=== PATIENT | female | born 1945 | race Caucasian/White ===

== ENCOUNTER → 2019-08-04 10:06 | Outpatient (BNVA) | payer MEDICARE, BC, SELFPAY | PROVIDERS: Family Provider Family Medicine; Visit Provider Nurse Practitioner Family | DX: M25.531 Pain in right wrist (principal); M25.532 Pain in left wrist | CPT/HCPCS: 73110 ==

== ENCOUNTER 2019-08-31 09:50 | Inpatient (IN) | payer MEDICARE, BC, SELFPAY ==
[2019-08-31] VITALS (13 sets, daily range): BP systolic 111–156; BP diastolic 59–107; PULSE 70–83; RESP 16–20; TEMP 36.4–36.8; O2SAT 93–98; BMI 33.2
--- NOTE | 2019-08-31 10:07 | ED_ITS ---
HPI - Abdominal Pain General: Chief Complaint: Abdominal Pain Stated Complaint: abd pain Time Seen by Provider: 08/31/19 10:01 Source: patient Mode of arrival: ambulatory Limitations: no limitations History of Present Illness: HPI narrative: Patient is a 73-year-old female who presents to ED today with a complaint of abdominal pain that began around 2:30 AM this morning. Patient tells me pain seems to be localized to her upper abdomen. She reports 6 episodes of nonbloody vomit since the abdominal pain began. She is also had about 1-2 episodes of diarrhea (does not describe these as hematochezia or melanotic). Not passing gas. Patient tells me abdominal pain seems to come and go. She reports previous episodes approximately a decade ago that was treated with amitriptyline. She has not been running fevers. No bad food exposure. No recent antibiotic use, NSAID use, alcohol use. Patient is on chronic pain medication. Previous abdominal surgeries include a hysterectomy, hernia repair with mesh, small bowel resection due to SBO (mesh complication). MD elicited complaint: abdominal pain Onset (ago): hour(s) Pain Consistency: intermittent Migration to: no migration Exacerbating factors: nothing Relieving factors: nothing Context: history of similar episodes Associated Symptoms: Reports diarrhea, nausea and vomiting; Denies belching, change in stool character, chills, coffee ground emesis, dysuria, excessive flatus, fever(s), heartburn, hematochezia, hematemesis, melena and syncope Review of Systems General: Reports: 10 or more systems reviewed and unremarkable except in HPI and below Const: Denies: fever(s), chills, body aches, fatigue or malaise Eyes: Denies: change in vision or blurry vision ENMT: Denies: throat pain, enlarged tonsils or odynophagia Card: Denies: chest pain, palpitations, irregular heart rhythm, edema, swelling of feet/ankles, lightheadedness, syncope, pre-syncope, dyspnea on exertion, orthopnea or leg pain with exertion Resp: Denies: dyspnea, productive cough, non-productive cough, pain on inspiration, hemoptysis or chest congestion GI: Reports: abdominal pain, nausea, vomiting and diarrhea; Denies: hematemesis, coffee ground emesis, heartburn, belching, excessive flatus, rectal itching, change in stool character, hematochezia, melena, mucus in stool or white/light colored stool : Denies: flank pain, difficulty voiding, dysuria, urinary frequency, urinary urgency or urinary hesitancy Musc: Denies: neck pain, back pain or joint pain Skin/Breast: Denies: rash Neuro: Denies: headache(s), numbness in extremities, weakness in extremities or sensory changes PFSH ED PFSH: Social History Smoking and tobacco status: former smoker Physical Exam Const: COMMON NORMALS: patient oriented x3, no limitations and alert GENERAL APPEARANCE: cooperative and in distress (during waves of abdominal pain) NUTRITIONAL APPEARANCE: obese HENMT: COMMON NORMALS: normocephalic and atraumatic HEAD & SCALP: normocephalic and atraumatic Chest: COMMONS NORMALS: normal inspection of the chest and normal palpation of entire chest wall Resp: COMMON NORMALS: normal respiratory effort and clear to auscultation bilaterally AUSCULTATION: clear to auscultation bilaterally Cardio: COMMON NORMALS: regular rate and regular rhythm RATE: regular rate RHYTHM: regular rhythm GI: COMMON NORMALS: Soft to palpation INSPECTION: Yes normal to inspection AUSCULTATION: Yes normoactive bowel sounds PALPATION: Yes Soft to palpation and Yes Tenderness to palpation present (GI) (diffuse but more so to RUQ, epigastric, and suprapubic regions) : COMMON NORMALS: Yes no CVA tenderness BLADDER/KIDNEY EXAM: Yes no CVA tenderness Back/Pelvis: COMMON NORMALS: no CVA tenderness Extremity: COMMON NORMALS: normal to inspection, no clubbing, cyanosis or edema and no pedal edema Neuro: COMMON NORMALS: patient oriented x3 SENSORIUM/ORIENTATION: Yes alert Skin: COMMON NORMALS: no rashes or lesions noted GENERAL SKIN EXAM: no rashes or lesions noted Course Consultations: Consultation #1: Dr. Tolbert-recommends NG tube and admit to hospitalist for medical management and he will consult on patient Vital Signs: Vital signs: Vital Signs Temperature 97.8 F 08/31/19 09:58 Pulse Rate 72 08/31/19 13:09 Respiratory Rate 18 08/31/19 13:09 Blood Pressure 116/76 08/31/19 13:09 Pulse Oximetry 96 08/31/19 13:09 MDM - Abdominal Pain MDM Narrative: Medical decision making narrative: NG tube ordered. Lactate still pending (lab confirmed this is running). Dr. Tolbert will consult on patient. Spoke to Dr. Jose who will speak to hospitalist for admission. Lab Data: Labs: Lab Results 08/31/19 08/31/19 08/31/19 Range/Units 10:13 10:13 10:13 WBC 10.7 H (4.0-10.0) 10^3/ uL RBC 3.61 L (4.1-5.3) 10^6/u L Hgb 11.7 (11.5-15.3) g/dL Hct 37.6 (37.0-47.0) % MCV 104.2 H (81-99) fL MCH 32.4 (28.0-34.0) pg MCHC 31.1 (30.0-36.0) g/dL RDW 13.5 (12.1-15.1) % Plt Count 373 (130-400) 10^3/c mm MPV 11.4 H (7.4-10.4) fL Neut % (Auto) 76.0 % Lymph % (Auto) 17.4 % Ballard % (Auto) 5.2 % Eos % (Auto) 0.6 % Baso % (Auto) 0.6 % Neut # (Auto) 8.2 H (1.8-7.7) 10^3/u L Lymph # (Auto) 1.9 (0.8-4.8) 10^3/u L Ballard # (Auto) 0.6 (0.2-0.9) 10^3/u L Eos # (Auto) 0.1 (0.0-0.8) 10^3/u L Baso # (Auto) 0.1 (0.0-0.1) 10^3/u L Nucleated RBC % (a uto) 0 % Nucleated RBCs # 0.0 /100WBC Sodium 139 (136-145) mmol/L Potassium 4.7 (3.5-5.1) mmol/L Chloride 97 L (98-107) mmol/L Carbon Dioxide 25 (22-29) mmol/L Anion Gap 21.7 H (5-19) BUN 18 (8-23) mg/dL Creatinine 0.8 (0.5-0.9) mg/dL Glucose 134 H (65-115) mg/dL Calculated Osmolal ity 286 (285-295) mOsm/k g Calcium 10.9 H (8.5-10.5) mg/dL Total Bilirubin 0.2 (0.15-1.2) mg/dL AST 31 (0-32) U/L ALT 30 (0-33) U/L Alkaline Phosphata se 94 (35-105) IU/L Troponin T Gen 5 n g/L 6 (0-10) ng/mL Total Protein 8.0 (6.6-8.7) g/dL Albumin 4.8 (3.5-5.2) g/dL Globulin 3.2 (1.3-4.6) g/dL Lipase 27 (13-60) U/L Urine Color (Yellow) Urine Appearance (CLEAR) Urine pH (5-7) Ur Specific Gravit y (1.005-1.030) Urine Protein (Negative) Urine Glucose (UA) (Normal) Urine Ketones (Negative) Urine Blood (Negative) Urine Nitrate (Negative) Urine Bilirubin (NEGATIVE) Urine Urobilinogen (Negative) mg/dL Ur Leukocyte Latasha ase (Negative) Urine RBC (0-2) /hpf Urine WBC (0-5) /hpf Ur Squamous Epith Cells (0-5) Urine Bacteria (NONE) Urine Mucus 08/31/19 Range/Units 11:45 WBC (4.0-10.0) 10^3/ uL RBC (4.1-5.3) 10^6/u L Hgb (11.5-15.3) g/dL Hct (37.0-47.0) % MCV (81-99) fL MCH (28.0-34.0) pg MCHC (30.0-36.0) g/dL RDW (12.1-15.1) % Plt Count (130-400) 10^3/c mm MPV (7.4-10.4) fL Neut % (Auto) % Lymph % (Auto) % Ballard % (Auto) % Eos % (Auto) % Baso % (Auto) % Neut # (Auto) (1.8-7.7) 10^3/u L Lymph # (Auto) (0.8-4.8) 10^3/u L Ballard # (Auto) (0.2-0.9) 10^3/u L Eos # (Auto) (0.0-0.8) 10^3/u L Baso # (Auto) (0.0-0.1) 10^3/u L Nucleated RBC % (a uto) % Nucleated RBCs # /100WBC Sodium (136-145) mmol/L Potassium (3.5-5.1) mmol/L Chloride (98-107) mmol/L Carbon Dioxide (22-29) mmol/L Anion Gap (5-19) BUN (8-23) mg/dL Creatinine (0.5-0.9) mg/dL Glucose (65-115) mg/dL Calculated Osmolal ity (285-295) mOsm/k g Calcium (8.5-10.5) mg/dL Total Bilirubin (0.15-1.2) mg/dL AST (0-32) U/L ALT (0-33) U/L Alkaline Phosphata se (35-105) IU/L Troponin T Gen 5 n g/L (0-10) ng/mL Total Protein (6.6-8.7) g/dL Albumin (3.5-5.2) g/dL Globulin (1.3-4.6) g/dL Lipase (13-60) U/L Urine Color Yellow (Yellow) Urine Appearance Clear (CLEAR) Urine pH 5 (5-7) Ur Specific Gravit y 1.020 (1.005-1.030) Urine Protein Neg (Negative) Urine Glucose (UA) Norm (Normal) Urine Ketones Negative (Negative) Urine Blood Neg (Negative) Urine Nitrate Negative (Negative) Urine Bilirubin Neg (NEGATIVE) Urine Urobilinogen Norm (Negative) mg/dL Ur Leukocyte Latasha ase 1+ H (Negative) Urine RBC 0-4 H (0-2) /hpf Urine WBC 5-10 H (0-5) /hpf Ur Squamous Epith Cells 0-4 H (0-5) Urine Bacteria 2+ H (NONE) Urine Mucus Trace Imaging Data ^: US gallbladder: Radiologist's impression: [address] [address] Ultrasound Report Signed Patient: Kathryn Seals Unit #: [id number] : 1945 Age/Sex: 73 / F ADM Date: 08/31/19 Loc: ER Room/Bed: Attending Dr: Ordering Provider/Ordering MD: Alejandrina Chavez Date of Service: 08/31/19 Procedure(s): US gall bladder [id number] Accession Number(s): [id number] Report Number: [id number] WS: [id number] RIGHT UPPER QUADRANT ULTRASOUND HISTORY: RUQ pain COMPARISON: None available. Liver: 12.0 cm in length. Normal size and echogenicity with no intrahepatic dilatation. No mass. Gallbladder: Normally distended gallbladder with no stones or wall thickening. CBD: 0.6 cm Pancreas: Not visualized. Right kidney: 9.6 cm in length. Normal echogenicity with no mass or hydronephrosis. Aorta and IVC: Unremarkable. No ascites. US/US gall bladder [id number] IMPRESSION: 1. Normal gallbladder. 2. Common bile duct is top normal size. 3. Pancreas is not identified. Dictated By: Rosario De Leon DO Signed By: Rosario De Leon DO Signed Date/Time: 08/31/19 1127 DD/ 1126 CXR: Radiologist's impression: [address] [address] XRay Report Signed Patient: Kathryn Seals Unit #: [id number] : 1945 Age/Sex: 73 / F ADM Date: 08/31/19 Loc: ER Room/Bed: Attending Dr: Ordering Provider/Ordering MD: Alejandrina Chavez Date of Service: 08/31/19 Procedure(s): XR chest 1V portable [id number] Accession Number(s): [id number] Report Number: [id number] WS: [id number] PORTABLE CHEST HISTORY: admission COMPARISON: 12/11/2016 Lungs are clear and well expanded. No pleural effusion or pneumothorax. Cardiac size: Normal. Mediastinum/Aorta: Partially calcified thoracic aorta. No osseous abnormality seen. XR/XR chest 1V portable [id number] IMPRESSION: Stable chest with no acute cardiopulmonary disease. Dictated By: Rosario De Leon DO Signed By: Rosario De Leon DO Signed Date/Time: 08/31/191246 DD/ 1246 CT Abd/Pel: Radiologist's impression: [facility] [address] [place] [address] CT Scan Report Signed Patient: Kathryn Seals Unit #: [id number] : 1945 Age/Sex: 73 / F ADM Date: 08/31/19 Loc: ER Room/Bed: Attending Dr: Ordering Provider/Ordering MD: Alejandrina Chavez Date of Service: 08/31/19 Procedure(s): CT abdomen pelvis w con* [id number] Accession Number(s): [id number] Report Number: [id number] WS: [id number] CT ABDOMEN AND PELVIS WITH CONTRAST HISTORY: abdominal pain/N/V TECHNIQUE: Imaging performed of the abdomen and pelvis with IV contrast. Single phase imaging of the abdomen. Coronal and sagittal reformats are submitted. All CT scans at [facility] use at least one of these dose optimization techniques: automated exposure control; mA and/or kV adjustment per patient size (includes targeted exams where dose is matched to clinical indication); or iterative reconstruction. IV CONTRAST: Omnipaque 300; 95 mL IV. Oral contrast: No DLP: 1070.53 mGy.cm COMPARISON: None available. Lower thorax: Lung bases are clear. Heart is normal size. No hiatal hernia. Liver/biliary system: Normal size with no intrahepatic dilatation. Gallbladder: Normal. No gallstones or wall thickening. No pericholecystic fluid. Pancreas: Atrophic pancreas with a very slightly prominent duct. Common bile duct at the pancreatic head is slightly enlarged at 6 mm. There is no intrahepatic duct dilatation. Spleen: Normal. Adrenal glands: Normal. Right kidney: Partial obscuration lower pole RIGHT kidney by artifact from the patient's spine hardware. Simple cyst in the upper pole measures 11 mm. No obstruction. Left kidney: Scattered cortical hypodensities. Majority of these are too small to characterize. The largest measures 2.0 cm and is a cyst from the mid kidney. Cortical thinning and scarring in the lower pole. No obstruction. Aorta: Extensive atherosclerosis aorta. Lymphadenopathy: None. Free fluid: There is a small amount of free fluid in the pelvis. There is also small amount of fluid in the central abdomen anteriorly near the hyperemic loops of bowel and small bowel fecalization. GI tract: Fluid distended proximal and mid small bowel loops. There is fecalization within a loop of small bowel in the central abdomen, just to the RIGHT of midline and also in the RIGHT lower quadrant. There are are also surgical sutures in the small bowel near the a nastomotic site. Suspect this is probably the transition point but there is additional mild hyperemia of small bowel loops which are nondilated in the central abdomen, just to the LEFT of midline. There is mesenteric edema and a small amount of free fluid. Abdominal wall: Unremarkable abdominal wall. No hernia. Pelvis: Small amount of free fluid in the pelvis. No adenopathy. Bones: Extensive posterior lumbar fusion hardware. CT/CT abdomen pelvis w con* [id number] IMPRESSION: 1. Moderate small bowel obstruction with the transition point not determined by probably in the mid small bowel. Distal small bowel is normal caliber. Postoperative sutures in the RIGHT abdomen associated with small bowel. No history of type of small bowel surgery was provided. 2. There is a small amount of free fluid in the abdomen and pelvis. 3. No free air is identified. 4. No abscess. 5. Atrophic pancreas with common bile duct top normal size. 6. Moderate atherosclerosis aorta. Dictated By: Rosario De Leon DO Signed By: Rosario De Leon DO Signed Date/Time: 08/31/19 1155 DD/ 1143 EKG Data ^: EKG 1: EKG interpretation date: 08/31/19 EKG interpretation time: 10:42 Interpretation: Sinus rhythm Rate [address] elevation or depression changes noted Discharge Plan Discharge Patient Disposition: Admitted As Inpatient Clinical Impression: Small bowel obstruction Condition: Stable Referrals: Marcus Pozo MD [Family Provider] - Coding Level of Care Code ED Intellectual Property Lawyer for Chg Fwd Exam Comprehensive
[2019-08-31] MEDS: morphine 4 mg/mL SDV 1 mL IVP (10:21)
[2019-08-31] MEDS: ondansetron 2 mg/ML SDV 2 mL 4 MG IVP ×2 (10:21→23:57)
--- NOTE | 2019-08-31 10:21 | CT_ITS ---
WS: [id number] CT ABDOMEN AND PELVIS WITH CONTRAST HISTORY: abdominal pain/N/V TECHNIQUE: Imaging performed of the abdomen and pelvis with IV contrast. Single phase imaging of the abdomen. Coronal and sagittal reformats are submitted. All CT scans at [facility] use at least one of these dose optimization techniques: automated exposure control; mA and/or kV adjustment per patient size (includes targeted exams where dose is matched to clinical indication); or iterativ e reconstruction. IV CONTRAST: Omnipaque 300; 95 mL IV. Oral contrast: No DLP: 1070.53 mGy.cm COMPARISON: None available. Lower thorax: Lung bases are clear. Heart is normal size. No hiatal hernia. Liver/biliary system: Normal size with no intrahepatic dilatation. Gallbladder: Normal. No gallstones or wall thickening. No pericholecystic fluid. Pancreas: Atrophic pancreas with a very slightly prominent duct. Common bile duct at the pancreatic h ead is slightly enlarged at 6 mm. There is no intrahepatic duct dilatation. Spleen: Normal. Adrenal glands: Normal. Right kidney: Partial obscuration lower pole RIGHT kidney by artifact from the patient's spine hardwa re. Simple cyst in the upper pole measures 11 mm. No obstruction. Left kidney: Scattered cortical hypodensities. Majority of these are too small to characterize. The l argest measures 2.0 cm and is a cyst from the mid kidney. Cortical thinning and scarring in the lower pole. No obstruction. Aorta: Extensive atherosclerosis aorta. Lymphadenopathy: None. Free fluid: There is a small amount of free fluid in the pelvis. There is also small amount of fluid in the central abdomen anteriorly near the hyperemic loops of bowel and small bowel fecalization. GI tract: Fluid distended proximal and mid small bowel loops. There is fecalization within a loop of small bowel in the central abdomen, just to the RIGHT of midline and also in the RIGHT lower quadrant . There are are also surgical sutures in the small bowel near the anastomotic site. Suspect this is p robably the transition point but there is additional mild hyperemia of small bowel loops which are no ndilated in the central abdomen, just to the LEFT of midline. There is mesenteric edema and a small a mount of free fluid. Abdominal wall: Unremarkable abdominal wall. No hernia. Pelvis: Small amount of free fluid in the pelvis. No adenopathy. Bones: Extensive posterior lumbar fusion hardware. CT/CT abdomen pelvis w con* [id number] IMPRESSION: 1. Moderate small bowel obstruction with the transition point not determined b y probably in the mid small bowel. Distal small bowel is normal caliber. Postop erative sutures in the RIGHT abdomen associated with small bowel. No history of type of small bowel surgery was provided. 2. There is a small amount of free fluid in the abdomen and pelvis. 3. No free air is identified. 4. No abscess. 5. Atrophic pancreas with common bile duct top normal size. 6. Moderate atherosclerosis aorta.
--- NOTE | 2019-08-31 10:21 | US_ITS ---
WS: [id number] RIGHT UPPER QUADRANT ULTRASOUND HISTORY: RUQ pain COMPARISON: None available. Liver: 12.0 cm in length. Normal size and echogenicity with no intrahepatic dilatation. No mass. Gallbladder: Normally distended gallbladder with no stones or wall thickening. CBD: 0.6 cm Pancreas: Not visualized. Right kidney: 9.6 cm in length. Normal echogenicity with no mass or hydronephrosis. Aorta and IVC: Unremarkable. No ascites. US/US gall bladder [id number] IMPRESSION: 1. Normal gallbladder. 2. Common bile duct is top normal size. 3. Pancreas is not identified.
--- NOTE | 2019-08-31 10:23 | ECG_ITS ---
Measurements Intervals [place] Rate: 72 P: 62 ME: 158 QRS: 36 QRSD: 75 T: 42 QT: 378 QTc: 416 SINUS RHYTHM Compared to ECG 12/11/2016 12:25:00 No significant changes Electronically Signed On 08-31-2019 11:52:56 CDT by Ananya Sewell M.D. [id number]
[2019-08-31 10:26] LABS: Basophils # 0.1 10^3/uL (0.0-0.1); Basophils % 0.6 %; Eosinophils # 0.1 10^3/uL (0.0-0.8); Eosinophils % 0.6 %; Hematocrit 37.6 % (37.0-47.0); Hemoglobin 11.7 g/dL (11.5-15.3); Lymphocytes # 1.9 10^3/uL (0.8-4.8); Lymphocytes % 17.4 %; Mean Corpuscular HGB Conc 31.1 g/dL (30.0-36.0); Mean Corpuscular Hemoglobin 32.4 pg (28.0-34.0); Mean Corpuscular Volume 104.2 fL (81-99); Mean Platelet Volume 11.4 fL (7.4-10.4); Monocytes # 0.6 10^3/uL (0.2-0.9); Monocytes % 5.2 %; Neutrophils # 8.2 10^3/uL (1.8-7.7); Nucleated Red Blood Cells % 0 %; Platelet Count 373 10^3/cmm (130-400); Red Blood Count 3.61 10^6/uL (4.1-5.3); Red Cell Distribution Width 13.5 % (12.1-15.1); White Blood Count 10.7 10^3/uL (4.0-10.0)
[2019-08-31 10:50] LABS: Alanine Aminotransferase 30 U/L (0-33); Albumin Level 4.8 g/dL (3.5-5.2); Alkaline Phosphatase 94 IU/L (35-105); Anion Gap 21.7 (5-19); Blood Urea Nitrogen 18 mg/dL (8-23); Calcium 10.9 mg/dL (8.5-10.5); Carbon Dioxide 25 mmol/L (22-29); Chloride 97 mmol/L (98-107); Globulin 3.2 g/dL (1.3-4.6); Glucose 134 mg/dL (65-115); Lipase 27 U/L (13-60); Osmolality Calculated 286 mOsm/kg (285-295); Potassium 4.7 mmol/L (3.5-5.1); Sodium 139 mmol/L (136-145); Total Bilirubin 0.2 mg/dL (0.15-1.2)
[2019-08-31 10:51] LABS: Troponin T (5th) Once 6 ng/mL (0-10)
[2019-08-31 11:21] LABS: Aspartate Amino Transferase 31 U/L (0-32)
[2019-08-31] MEDS: iohexol 300 mg/mL 100 mL Btl IV (11:36)
[2019-08-31 11:52] LABS: Add Urine Microscopic? YES; Bilirubin Urine Neg (NEGATIVE); Blood Urine Neg (Negative); Glucose Urine UA Norm (Normal); Ketones Urine Negative (Negative); Leukocyte Esterase Urine 1+ (Negative); Nitrate Urine Negative (Negative); Protein Urine Neg (Negative); Urine Appearance Clear (CLEAR); Urine Color Yellow (Yellow); Urobilinogen Urine Norm (Negative); pH Urine 5 (5-7)
[2019-08-31 12:02] LABS: Add Urine Culture? Yes; Bacteria Urine 2+; Mucus Urine TRACE; RBC Urine 0-4 /hpf (0-2); Squamous Epithelial Cell Urine 0-4 (0-5)
[2019-08-31] MEDS: HYDROmorphone 1 mg/mL INJ 1 mL 0.5 MG IVP ×2 (12:35→14:04)
--- NOTE | 2019-08-31 12:38 | XR_ITS ---
WS: [id number] PORTABLE CHEST HISTORY: admission COMPARISON: 12/11/2016 Lungs are clear and well expanded. No pleural effusion or pneumothorax. Cardiac size: Normal. Mediastinum/Aorta: Partially calcified thoracic aorta. No osseous abnormality seen. XR/XR chest 1V portable [id number] IMPRESSION: Stable chest with no acute cardiopulmonary disease.
[2019-08-31 13:29] LABS: Lactate (Lactic Acid level) 2.4 mmol/L (0.5-2.2)
--- NOTE | 2019-08-31 13:44 | P.HP_ITS ---
Providers/Chief Complaint Chief Complaint: abd pain History of Present Illness Kathryn Seals is a 73 year old female that reports with complaints of abdominal pain starting this morning. Last bowel movement was this morning but only mucus. Since then she has had vomiting at least 6 times. She has had significant abdominal pain all over. She reports no hematemesis, melena or hematochezia. No fevers at home. No recent cough. No COVID exposure. Reports distant past history of bowel obstruction secondary to mesh which required partial small bowel removal. This was greater than 10 years ago. Review of Systems General: Reports: 10 or more systems reviewed and unremarkable except in HPI and below Const: Denies: fever(s) Eyes: Denies: change in vision ENMT: Denies: throat pain Card: Denies: chest pain Resp: Denies: dyspnea GI: Reports: abdominal pain, nausea and vomiting; Denies: coffee ground emesis : Denies: difficulty voiding Skin/Breast: Denies: rash Neuro: Denies: headache(s) Psych: Reports: depression Endo: Denies: polyuria [place]/Lymph: Denies: easy bruising All/Imm: Denies: urticaria Medications/Allergies Home Medications Medication Instructions Recorded Confirmed Last Taken Type acyclovir 800 mg tablet 800 mg PO DAILY PRN 08/04/19 08/31/19 Unknown History alprazolam 2 mg tablet 0.5 mg PO QID PRN 08/04/19 08/31/19 08/31/19 History amitriptyline 25 mg tablet 25 mg PO DAILY 08/04/19 08/31/19 08/30/19 History cholecalciferol (vitamin D3) 25 200 mcg PO DAILY 08/04/19 08/31/19 08/31/19 History mcg (1,000 unit) tablet gabapentin 400 mg capsule 800 mg PO TID cap 08/04/19 08/31/19 08/31/19 History hydrocodone 10 mg-acetaminophen 1 tab PO Q6H PRN 08/04/19 08/31/19 Unknown History 325 mg tablet lisinopril 5 mg tablet 5 mg PO DAILY 08/04/19 08/31/19 08/30/19 History oxycodone-acetaminophen 10 mg-325 1 tab PO Q6H PRN 08/04/19 08/31/19 Unknown History mg tablet promethazine 25 mg tablet 25 mg PO TID PRN 08/04/19 08/31/19 Unknown History sertraline 100 mg tablet 100 mg PO DAILY 08/04/19 08/31/19 08/31/19 History temazepam 15 mg capsule 15 mg PO BEDTIME cap 08/04/19 08/31/19 08/30/19 History zolpidem 10 mg tablet 10 mg PO BEDTIME 08/04/19 08/31/19 08/30/19 History Allergies Allergy/AdvReac Type Severity Reaction Status Date / Time quinine Allergy Intermediate rash Verified 08/04/19 09:13 PFSH Acute PFSH: Medical History (Updated 08/31/19 @ 13:52 by Mehran Oden MD) Chronic pain Depression DJD (degenerative joint disease) Hypertension Insomnia Surgical History (Updated 08/31/19 @ 13:48 by Mehran Oden MD) History of back surgery History of bladder suspension procedure History of colon resection History of hernia repair History of partial hysterectomy History of total knee replacement BOTH KNEES Hx of breast implants, bilateral S/P tonsillectomy Family History (Updated 08/31/19 @ 13:48 by Mehran Oden MD) Mother Hypertension Social History (Updated 08/31/19 @ 13:48 by Mehran Oden MD) Smoking and tobacco status: former smoker Alcohol intake: never Substance/Drug Use: never Vitals/I&O/Wt Last Vital Signs Temp 97.8 F 08/31/19 09:58 Pulse 72 08/31/19 13:09 Resp 18 08/31/19 13:09 BP 116/76 08/31/19 13:09 Pulse Ox 96 08/31/19 13:09 Weight last 48 hrs Weight 77.111 kg Physical Exam Narrative: EXAM NARRATIVE: General exam is complaining of significant abdominal pain, all over HEENT: Pupils equally round. Oropharynx clear. Neck supple no lymphadenopathy or thyromegaly Cardiovascular regular rate and rhythm without murmur Lungs clear no wheezing or crackles Abdomen is distended. Bowel sounds are noted. Tenderness is present. was deferred Extremities no cyanosis clubbing or edema, cap refill brisk Skin no rash Neuro no focal deficits Data : 08/31/19 10:13 08/31/19 10:13 Other data: Urine possible infection. LFTs normal. Lipase normal. Chest x-ray no acute disease Gallbladder ultrasound normal CT consistent with small bowel obstruction, small amount of free fluid abdomen and pelvis A&P Assessment and plan (1) Small bowel obstruction: Admission Supportive care with fluids NG to suction Surgery consultation. I will discuss with them elevated lactate. Will repeat lactate around 6. Pain control Check TSH and magnesium levels Status: Acute (2) UTI (urinary tract infection): Rocephin IV Status: Acute (3) Macrocytosis: Check folate, B12 Status: Acute (4) Hypertension: Hydralazine as needed Status: Acute Additional A&P Information Depression/anxiety Insomnia Chronic neck and back pain DJD Multiple other medical problems as outlined above in past medical history Heparin for DVT prophylaxis Full code Attestations Medical Necessity Statement*: Will need greater than 2 midnight stay for evaluation and treatment of small bowel obstruction Time Spent in Patient Care: Greater than 35 minutes Coding Level of Care Code Acute Concrete Mixer Operator for Chg Fwd Diagnoses Small bowel obstruction K56.609 UTI (urinary tract infection) N39.0 Macrocytosis D75.89 Hypertension I10
[2019-08-31] MEDS: cefTRIAXone 1,000 MG in sodium chloride 0.9% (plus) 50 ML 100 MG IV (14:04)
[2019-08-31] MEDS: sodium chloride 0.9% 1,000 ML 100 ML IV ×2 (14:06→23:37)
[2019-08-31 15:28] LABS: Magnesium 2.3 mg/dL (1.7-2.3); Thyroid Stimulating Hormone 2.26 uIU/mL (0.27-4.20); Vitamin B12 561 pg/mL (232-1245)
[2019-08-31 15:41] LABS: Estmated Average Glucose 128; Hemoglobin A1C 6.1 % (4.0-6.0)
[2019-08-31 16:21] LABS: Folate Level > 20.0 ng/mL (4.8-37.3)
[2019-08-31] MEDS: pantoprazole 40 mg SDV IVP (16:43)
[2019-08-31] MEDS: heparin 5,000 unit/mL INJ 1 mL 5000 UNIT SUBCUT (16:43)
--- NOTE | 2019-08-31 16:55 | P.HP_ITS ---
Providers/Chief Complaint Admitting Physician: Mehran Oden MD Chief Complaint: abd pain History of Present Illness Kathryn Seals is a 73 year old female who presented to the ER today with severe generalized abdominal pain which started last night. Patient states the pain progressively got worse and was associated with nausea and vomiting. She denies any fevers or chills and states that she had a bowel movement in the last 24 hours so she is not sure about the exact time. She states that she had a hernia repair with mesh 20 years ago, subsequent she developed bowel obstruction requiring bowel resection. She has not had any similar episodes in the last 20 years. She is on chronic pain medications and has been on an aggressive bowel regimen and therefore able to have a bowel movement every day. Review of Systems General: Reports: 10 or more systems reviewed and unremarkable except in HPI and below Medications/Allergies Home Medications Medication Instructions Recorded Confirmed Last Taken Type acyclovir 800 mg tablet 800 mg PO DAILY PRN 08/04/19 08/31/19 Unknown History alprazolam 2 mg tablet 0.5 mg PO QID PRN 08/04/19 08/31/19 08/31/19 History amitriptyline 25 mg tablet 25 mg PO DAILY 08/04/19 08/31/19 08/30/19 History cholecalciferol (vitamin D3) 25 200 mcg PO DAILY 08/04/19 08/31/19 08/31/19 History mcg (1,000 unit) tablet gabapentin 400 mg capsule 800 mg PO TID cap 08/04/19 08/31/19 08/31/19 History hydrocodone 10 mg-acetaminophen 1 tab PO Q6H PRN 08/04/19 08/31/19 Unknown History 325 mg tablet lisinopril 5 mg tablet 5 mg PO DAILY 08/04/19 08/31/19 08/30/19 History oxycodone-acetaminophen 10 mg-325 1 tab PO Q6H PRN 08/04/19 08/31/19 Unknown History mg tablet promethazine 25 mg tablet 25 mg PO TID PRN 08/04/19 08/31/19 Unknown History sertraline 100 mg tablet 100 mg PO DAILY 08/04/19 08/31/19 08/31/19 History temazepam 15 mg capsule 15 mg PO BEDTIME cap 08/04/19 08/31/19 08/30/19 History zolpidem 10 mg tablet 10 mg PO BEDTIME 08/04/19 08/31/19 08/30/19 History Allergies Allergy/AdvReac Type Severity Reaction Status Date / Time quinine Allergy Intermediate rash Verified 08/04/19 09:13 PFSH Acute PFSH: Medical History Chronic pain Depression DJD (degenerative joint disease) Hypertension Insomnia Surgical History History of back surgery History of bladder suspension procedure History of colon resection History of hernia repair History of partial hysterectomy History of total knee replacement BOTH KNEES Hx of breast implants, bilateral S/P tonsillectomy Family History Mother Hypertension Social History Smoking and tobacco status: former smoker Alcohol intake: never Substance/Drug Use: never Vitals/I&O/Wt Last Vital Signs Temp 97.6 F 08/31/19 16:00 Pulse 70 08/31/19 16:00 Resp 16 08/31/19 16:00 BP 156/76 08/31/19 16:00 Pulse Ox 98 08/31/19 16:00 08/31/19 08/31/19 08/31/19 06:59 14:59 22:59 Intake Total 50 / 50 Balance 50 / 50 Weight last 48 hrs Weight 170 lb Physical Exam Narrative: EXAM NARRATIVE: HEENT: Normocephalic Eye: Sclera /conjunctiva normal Abdomen: Soft to palpation, generalized tenderness, minimal guarding, no rigidity. Well-healed midline laparotomy scar and Pfannenstiel scar Neurological: Oriented to place person and time Skin: Intact, no lesions appreciated on gross exam Data : 08/31/19 10:13 08/31/19 10:13 A&P Assessment and plan (1) Small bowel obstruction: 73-year-old female with prior small bowel resection who presents with abdominal pain nausea and vomiting with CT scan findings suggestive of small bowel obstruction. At present patient is in pain but on exam she does not any peritonitis. Her lactate was slightly elevated white count is 10.7. We will therefore admit her as an inpatient NG tube to low transection Abdominal series in the morning Labs in the morning Lovenox for DVT prophylaxis Protonix for GI prophylaxis Patient will need greater than 2 nights of inpatient stay. Status: Acute Attestations Medical Necessity Statement*: Patient will need greater than 2 nights of inpatient stay to ensure resolution of obstruction. Coding Level of Care Code Acute Occupational Therapy Aides Teacher for [facility] Diagnoses Small bowel obstruction K56.609
[2019-08-31] MEDS: morphine 4 mg/mL SDV 1 mL 2 MG IVP (18:08)
[2019-08-31 18:39] LABS: Lactate (Lactic Acid level) 2.1 mmol/L (0.5-2.2)
[2019-08-31] MEDS: HYDROmorphone 1 mg/mL INJ 1 mL IVP (22:25)
[2019-09-01] VITALS (11 sets, daily range): BP systolic 128–192; BP diastolic 74–99; PULSE 68–83; RESP 16–24; TEMP 36.3–36.9; O2SAT 93–96
[2019-09-01] MEDS: HYDROmorphone 1 mg/mL INJ 1 mL IVP ×5 (02:32→21:34)
[2019-09-01] MEDS: pantoprazole 40 mg SDV IVP ×2 (04:17→16:59)
--- NOTE | 2019-09-01 06:00 | XR_ITS ---
WS: [id number] ABDOMEN 2 VIEW(S) HISTORY: sbo COMPARISON: 08/31/2019 CT. Nasogastric tube has been placed with tip below the GE junction. The proximal port is within the dist al esophagus and should be advanced. There is increased amount of air throughout the colon. Less smal l bowel dilatation as compared to the type disk quality control supervisor image from the CT. No free air. No suspicious calcifications or masses. Postsurgical changes in the lumbar region. High density contrast in the urinary bladder from the rece nt CT evaluation. XR/XR abdomen min 2V [id number] IMPRESSION: Moderate improvement in the small bowel dilatation. No free air. Recommend advancing nasogastric tube for more optimal positioning.
[2019-09-01 06:09] LABS: Basophils % 0.5 %; Eosinophils # 0.1 10^3/uL (0.0-0.8); Eosinophils % 1.5 %; Hemoglobin 9.9 g/dL (11.5-15.3); Lymphocytes # 1.6 10^3/uL (0.8-4.8); Lymphocytes % 23.4 %; Mean Corpuscular HGB Conc 30.9 g/dL (30.0-36.0); Mean Corpuscular Hemoglobin 32.5 pg (28.0-34.0); Mean Corpuscular Volume 104.9 fL (81-99); Mean Platelet Volume 12.2 fL (7.4-10.4); Monocytes # 0.4 10^3/uL (0.2-0.9); Monocytes % 5.6 %; Neutrophils # 4.6 10^3/uL (1.8-7.7); Neutrophils % 68.8 %; Nucleated Red Blood Cells % 0 %; Platelet Count 283 10^3/cmm (130-400); Red Blood Count 3.05 10^6/uL (4.1-5.3); Red Cell Distribution Width 13.2 % (12.1-15.1); White Blood Count 6.7 10^3/uL (4.0-10.0)
[2019-09-01] MEDS: ondansetron 2 mg/ML SDV 2 mL 4 MG IVP ×3 (06:14→21:33)
[2019-09-01 06:25] LABS: Slide Review Slide Review Perform
[2019-09-01 06:26] LABS: Blood Urea Nitrogen 14 mg/dL (8-23); Calcium 8.5 mg/dL (8.5-10.5); Carbon Dioxide 26 mmol/L (22-29); Chloride 103 mmol/L (98-107); Glucose 110 mg/dL (65-115); Osmolality Calculated 287 mOsm/kg (285-295); Sodium 140 mmol/L (136-145)
[2019-09-01] MEDS: cefTRIAXone 1,000 MG in sodium chloride 0.9% (plus) 50 ML 100 MG IV (07:55)
[2019-09-01] MEDS: enoxaparin 40 mg/0.4 mL Syringe SUBCUT (08:00)
[2019-09-01] MEDS: LORazepam 0.5 mg Tablet PO (08:05)
--- NOTE | 2019-09-01 10:21 | PM.PN ---
Subjective Subjective: Interval history: Kathryn reports her abdomen is still as painful as it was. She is having some dry heaves. She did have a bowel movement. Medications: Reviewed: Yes Vitals/I&O/Wt Last Vital Signs Temp 98.4 F 09/01/19 07:45 Pulse 71 09/01/19 07:45 Resp 18 09/01/19 07:45 BP 167/85 09/01/19 07:45 Pulse Ox 93 09/01/19 07:45 08/31/19 09/01/19 09/01/19 22:59 06:59 14:59 Intake Total 951.667 / 1001.667 Output Total 760 / 760 Balance 191.667 / 241.667 Weight last 48 hrs Weight 77.111 kg Physical Exam Narrative: EXAM NARRATIVE: General exam she appears to be in less distress than yesterday Cardiovascular regular rate and rhythm without murmur Lungs clear no wheezing or crackles Abdomen is distended. Diminished breath sounds. Generalized tenderness. Extremities no cyanosis clubbing or edema, cap refill brisk Data : 09/01/19 05:06 09/01/19 05:06 A&P Assessment and plan (1) Small bowel obstruction: Abdominal x-ray indicates improvement although patient clinically does not believe she has had significant improvement. Continue supportive care with IV fluids Appreciate surgery consultation Continue NG to suction TSH and magnesium levels were normal Status: Acute (2) UTI (urinary tract infection): Continue Rocephin IV. Await culture. Status: Acute (3) Macrocytosis: B12 and folate levels were checked and normal Status: Acute (4) Hypertension: Hydralazine as needed Status: Acute Additional A&P Information Depression/anxiety Insomnia Chronic neck and back pain DJD Multiple other medical problems as outlined above in past medical history Heparin for DVT prophylaxis Full code Attestations Medical Necessity Statement*: Needs continued hospitalization for supportive care until resolution of small bowel obstruction. Coding Level of Care Code Acute Materials Tech for [facility] Diagnoses Small bowel obstruction K56.609 UTI (urinary tract infection) N39.0 Macrocytosis D75.89 Hypertension I10
[2019-09-01] MEDS: sodium chloride 0.9% 1,000 ML 100 ML IV (10:59)
--- NOTE | 2019-09-01 11:13 | PC.CHAP ---
Pastoral Care Encounter/Spiritual Assessment Type of Contact [] Declined physician office clin asst visit [] Patient/Family/Request visit [] Outpatient visit [] Follow-up visit [] Physician referral [] Code/Alert [x] Routine visit [] Staff referral [] Actively dying [] Patient sleeping [] Family support [] [] Out of room [] Palliative care [] [] Receiving care in room [] Pre-surgical visit [] Trauma [] Long length of stay [] ICU visit [] Other: Relational/Emotional Strength [x] Patient feels connected with others/family/visitors/staff [] Distress [] Loneliness/isolation [] Abandonment Spirituality of Patient [x] Person of Ileana [] Attends Spiritism of their Ileana x[] Believes in Prayer [x] Reads Bible or Caodaism materials [] There are Spiritual issues to be addressed Power Sweeper Operator Interventions [x] Prayer [x] Active listening [x] Non-anxious presence [x] Spiritual/emotional support [] Crisis/trauma care [x] Spiritual counseling [] Bereavement support [] Provided bereavement packet [] Provided Bible/devotional materials [] Provided toy/stuffed animal, coloring book to patient or family member [] Provided Communion [] Anointing/[place] [] Salvation [x] Completed spiritual assessment [] Other: Impact on Illness or Injury [] Angry [] Fearful [] Anxious [] Often cries [] Exhaustion [] Unable to work [] Unable to attend congregation [] Unable to walk/stand [] Unable to read [] Unable to drive [] Unable to eat/drink [] Unable to sleep [] Unable to be with family [] Patient intubated [x] Other: Summary Patient is strong in her ileana committed to Lord [facility] and the study of His word. Time spent with patient 30 minutes
[2019-09-01] MEDS: magnesium citrate Btl 296 mL PO (11:57)
--- NOTE | 2019-09-01 17:57 | PM.PN ---
Subjective Subjective: Interval history: Patient continues to complain of abdominal pain, had multiple bowel movements. Had one Milk of molasses enema and 1 bottle of magnesium citrate. Vitals/I&O/Wt Last Vital Signs Temp 98.2 F 09/01/19 15:50 Pulse 78 09/01/19 15:50 Resp 16 09/01/19 15:50 BP 171/90 09/01/19 15:50 Pulse Ox 93 09/01/19 15:50 09/01/19 09/01/19 09/01/19 06:59 14:59 22:59 Intake Total 951.667 / 1345.899 0494 / 1050 Output Total 760 / 760 Balance 191.667 / 324.909 2277 / 1050 Weight last 48 hrs Weight 170 lb Physical Exam Narrative: EXAM NARRATIVE: Abdomen: Soft, less distended though has generalized tenderness Data : 09/01/19 05:06 09/01/19 05:06 Micro: Microbiology 08/31/19 11:45 Urine Culture - Preliminary Urine,Clean Catch A&P Assessment and plan (1) Small bowel obstruction: 73-year-old female who has been admitted to the hospital with small bowel obstruction. Patient is currently hemodynamically stable evidence of peritonitis. She complains of generalized tenderness. Abdominal series showed improvement, vital signs are stable and no evidence of peritonitis. Continue NG tube to low intermittent suction Abdominal series in the morning Ambulate ad gurdeep. Protonix for GI prophylaxis Lovenox for DVT prophylaxis Patient will need greater than 2 nights of inpatient stay to ensure resolution of bowel obstruction. Status: Acute Attestations Medical Necessity Statement*: Small bowel obstruction requiring continued inpatient stay to ensure resolution.. Coding Level of Care Code Acute Utility Sales Representative for [facility] Diagnoses Small bowel obstruction K56.609
[2019-09-01] MEDS: LORazepam 2 mg/mL INJ 1 mL 0.5 MG IVP (22:26)
--- NOTE | 2019-09-01 23:16 | XRR_ITS ---
PROCEDURE INFORMATION: Exam: XR Chest, 1 View Exam date and time: 09/01/2019 11:44 PM Age: 73 years old Clinical indication: Screening exam; Other screening; Additional info: Ng tube advancement TECHNIQUE: Imaging protocol: XR of the chest Views: 1 view. COMPARISON: CR XR chest 1V portable [id number] 08/31/2019 12:55 PM FINDINGS: Tubes, catheters and devices: Enteric tube terminates within the stomach. The side port is situated at the GE junction. Lungs: There is minimal atelectasis or scarring over the left costophrenic sulcus. Pleural space: Unremarkable. No pleural effusion. No pneumothorax. Heart/Mediastinum: Unremarkable. No cardiomegaly. Bones/joints: Unremarkable. XR/XR chest 1V [id number] IMPRESSION: Enteric tube terminates within the stomach.
[2019-09-02] VITALS (10 sets, daily range): BP systolic 163–184; BP diastolic 67–92; PULSE 80–94; RESP 16–20; TEMP 36.6–37.2; O2SAT 94–98
[2019-09-02] MEDS: ondansetron 2 mg/ML SDV 2 mL 4 MG IVP ×3 (02:19→14:48)
[2019-09-02] MEDS: hyDRALAzine 20 mg/mL INJ 1 mL 10 MG IVP ×3 (02:19→21:20)
[2019-09-02] MEDS: sodium chloride 0.9% 1,000 ML 100 ML IV ×2 (02:23→14:47)
[2019-09-02] MEDS: HYDROmorphone 1 mg/mL INJ 1 mL IVP ×4 (02:29→22:07)
[2019-09-02] MEDS: LORazepam 2 mg/mL INJ 1 mL 0.5 MG IVP ×6 (02:30→21:20)
[2019-09-02 02:44] LABS: Basophils % 0.1 %; Hematocrit 34.7 % (37.0-47.0); Hemoglobin 10.4 g/dL (11.5-15.3); Lymphocytes # 1.4 10^3/uL (0.8-4.8); Lymphocytes % 15.9 %; Mean Corpuscular Hemoglobin 31.9 pg (28.0-34.0); Mean Corpuscular Volume 106.4 fL (81-99); Mean Platelet Volume 10.5 fL (7.4-10.4); Monocytes # 0.5 10^3/uL (0.2-0.9); Monocytes % 5.6 %; Neutrophils # 6.9 10^3/uL (1.8-7.7); Neutrophils % 78.1 %; Nucleated Red Blood Cells % 0 %; Platelet Count 280 10^3/cmm (130-400); Red Blood Count 3.26 10^6/uL (4.1-5.3); Red Cell Distribution Width 12.8 % (12.1-15.1); White Blood Count 8.8 10^3/uL (4.0-10.0)
[2019-09-02 02:48] LABS: Alanine Aminotransferase 20 U/L (0-33); Albumin Level 4.2 g/dL (3.5-5.2); Alkaline Phosphatase 74 IU/L (35-105); Anion Gap 17.6 (5-19); Aspartate Amino Transferase 31 U/L (0-32); Blood Urea Nitrogen 9 mg/dL (8-23); Calcium 8.8 mg/dL (8.5-10.5); Carbon Dioxide 23 mmol/L (22-29); Chloride 100 mmol/L (98-107); Globulin 3.1 g/dL (1.3-4.6); Glucose 121 mg/dL (65-115); Osmolality Calculated 281 mOsm/kg (285-295); Potassium 3.6 mmol/L (3.5-5.1); Sodium 137 mmol/L (136-145); Total Bilirubin 0.2 mg/dL (0.15-1.2); Total Protein 7.3 g/dL (6.6-8.7)
--- NOTE | 2019-09-02 06:04 | PC.NURSE ---
SHIFT SUMMARY [id number], patient has had multiple episodes of vomiting green bile.Ativan, zofran, and dilaudid given throughout night. Pt seems to think the zofran makes her more nauseated. I tried to aspirate from NG and only got air. I advanced the tube about 5-7 inches and ordered a CXR. CXR showed NG had good placement in stomach. Hooked back up to low int. suction. Ng is slowly suctioning into tube. Patient has had no more rounds of vomiting bile. Ativan seems to work the best for this patient.
--- NOTE | 2019-09-02 07:00 | XRR_ITS ---
PROCEDURE INFORMATION: Exam: XR Abdomen, 2 Views Exam date and time: 09/02/2019 9:12 AM Age: 73 years old Clinical indication: Nausea; Prior surgery; Surgery type: Hysto; Additional info: Sbo, nausea TECHNIQUE: Imaging protocol: XR of the abdomen. Views: 2 Views. COMPARISON: CR XR abdomen min 2V [id number] 09/01/2019 5:40 AM FINDINGS: Tubes, catheters and devices: Enteric tube terminates within the stomach. Gastrointestinal tract: There are mildly dilated small bowel loops within the right lower abdomen, nonspecific. Intraperitoneal space: Normal. No free air. Bones/joints: There is lumbosacral fixation hardware. XR/XR abdomen min 2V [id number] IMPRESSION: Mildly dilated loops of small bowel right abdomen, potentially obstruction versus ileus.
[2019-09-02] MEDS: pantoprazole 40 mg SDV IVP ×2 (08:36→21:20)
[2019-09-02] MEDS: enoxaparin 40 mg/0.4 mL Syringe SUBCUT (08:37)
[2019-09-02] MEDS: cefTRIAXone 1,000 MG in sodium chloride 0.9% (plus) 50 ML 100 MG IV (08:37)
--- NOTE | 2019-09-02 08:42 | PM.PN ---
Subjective Subjective: Interval history: Patient does not want the NG tube removed, had some nausea after she got Dilaudid. She had 3 bowel movements yesterday. Still complaining of abdominal pain Vitals/I&O/Wt Last Vital Signs Temp 98.9 F 09/02/19 08:00 Pulse 94 09/02/19 08:00 Resp 18 09/02/19 08:00 BP 164/80 09/02/19 08:00 Pulse Ox 96 09/02/19 08:00 09/01/19 09/02/19 09/02/19 22:59 06:59 14:59 Intake Total 1400 / 2450 Output Total 1050 / 1450 400 / 1450 Balance 350 / 1000 -400 / 1000 Weight last 48 hrs Weight 170 lb Physical Exam Narrative: EXAM NARRATIVE: Soft nondistended mildly tender, NG tube is clamped Data : 09/02/19 02:10 09/02/19 02:10 Micro: Microbiology 08/31/19 11:45 Urine Culture - Preliminary Urine,Clean Catch A&P Assessment and plan (1) Small bowel obstruction: 73-year-old female who has been admitted to the hospital with small bowel obstruction. Clamp NG tube Abdominal series in the morning Ambulate ad gurdeep. Protonix for GI prophylaxis Lovenox for DVT prophylaxis Start clear liquid diet Patient will need greater than 2 nights of inpatient stay to ensure resolution of bowel obstruction. Status: Acute Attestations Medical Necessity Statement*: Small bowel obstruction, appears to be resolving Coding Level of Care Code Acute Flow Specialist for [facility] Diagnoses Small bowel obstruction K56.609
--- NOTE | 2019-09-02 10:23 | P.PN_ITS ---
Subjective Subjective: Interval history: Kathryn reports her abdomen still hurts. She still does not feel like she is any better. Medications: Reviewed: Yes Vitals/I&O/Wt Last Vital Signs Temp 98.9 F 09/02/19 08:00 Pulse 94 09/02/19 08:00 Resp 18 09/02/19 08:00 BP 164/80 09/02/19 08:00 Pulse Ox 96 09/02/19 08:00 09/01/19 09/02/19 09/02/19 22:59 06:59 14:59 Intake Total 1400 / 2450 Output Total 1050 / 1050 400 / 1450 Balance 350 / 1400 -400 / 1000 Physical Exam Narrative: EXAM NARRATIVE: General exam, frustrated regarding continued discomfort Cardiovascular regular rate and rhythm without murmur Lungs clear no wheezing or crackles Abdomen is distended. Bowel sounds are heard. Generalized tenderness. Extremities no cyanosis clubbing or edema, cap refill brisk Data : 09/02/19 02:10 09/02/19 02:10 Micro: Microbiology 08/31/19 11:45 Urine Culture - Preliminary Urine,Clean Catch A&P Assessment and plan (1) Small bowel obstruction: Abdominal x-ray reviewed. Still with some dilated loops. Patient does not believe she has made significant clinical improvement and is worried about severe recurrence Continue supportive care with IV fluids Appreciate surgery consultation Continue NG to suction TSH and magnesium levels were normal Status: Acute (2) UTI (urinary tract infection): Continue Rocephin IV. Await culture. Preliminary report shows a very few organisms Status: Acute (3) Macrocytosis: B12 and folate levels were checked and normal Status: Acute (4) Hypertension: Hydralazine as needed Status: Acute Additional A&P Information Depression/anxiety Insomnia Chronic neck and back pain DJD Multiple other medical problems as outlined above in past medical history Heparin for DVT prophylaxis Full code Attestations Medical Necessity Statement*: Needs continued hospitalization for supportive care secondary to small bowel obstruction. Awaiting return of bowel function. Coding Level of Care Code Acute Dentofacial Orthopedics Dentist for [facility] Diagnoses Small bowel obstruction K56.609 UTI (urinary tract infection) N39.0 Macrocytosis D75.89 Hypertension I10
[2019-09-02] MEDS: promethazine 25 mg/mL SDV 1 mL 12.5 MG IM ×2 (10:44→16:23)
--- NOTE | 2019-09-02 16:46 | XRR_ITS ---
PROCEDURE INFORMATION: Exam: XR Chest, 1 View Exam date and time: 09/02/2019 5:29 PM Age: 73 years old Clinical indication: Device placement; Ng tube; Patient HX: Ng placement TECHNIQUE: Imaging protocol: XR of the chest Views: 1 view. COMPARISON: CR XR chest 1V [id number] 09/01/2019 11:27 PM FINDINGS: Tip of NG tube projects over upper aspect of stomach, should be advanced about 4 CM for better positioning. Lung volumes are somewhat low. Otherwise no focal pulmonary consolidation is demonstrated on this single frontal image. No significant obscuration of the lateral costophrenic angles is demonstrated. No significant vascular congestion is demonstrated. Visualized cardiac silhouette size appears within normal limits. Thoracic aorta is unfolded. There are calcifications in the thoracic aorta. XR/XR chest 1V portable [id number] IMPRESSION: Tip of NG tube projects over upper aspect of stomach, should be advanced about 4 CM for better positioning.
[2019-09-02] MEDS: promethazine 25 mg/mL SDV 1 mL IM (22:17)
[2019-09-03] VITALS (10 sets, daily range): BP systolic 126–181; BP diastolic 69–91; PULSE 77–105; RESP 16–20; TEMP 36.9–37.1; O2SAT 93–99
[2019-09-03] MEDS: ondansetron 2 mg/ML SDV 2 mL 4 MG IVP ×3 (00:04→20:03)
[2019-09-03] MEDS: sodium chloride 0.9% 1,000 ML 100 ML IV ×2 (00:14→13:16)
[2019-09-03] MEDS: LORazepam 2 mg/mL INJ 1 mL 0.5 MG IVP ×2 (02:03→06:11)
[2019-09-03] MEDS: HYDROmorphone 1 mg/mL INJ 1 mL IVP ×4 (02:03→20:05)
--- NOTE | 2019-09-03 07:00 | PC.NURSE ---
SHIFT SUMMARY At beginning of shift patient was very anxious and complaining of severe abdominal pain and nausea. Pt. given Dilaudid, Ativan, Zofran, Phenergan this shift as needed. Pt. did have elevated blood pressure at start of shift with PRN hydralazine given. Pt. initially given 1mg PRN dilaudid but then increased to 2mg as order is 1-2mg IV and the 1mg did not help patient with her pain. At start of shift patient was on phone with family members while nursing staff in room and appeared agitated stating They're torturing me in here. I would go somewhere else but I'd have to wait 6 months for my nose to heal from this NG tube and for my IV sites to heal up. They're just starving me to , I'm withering away, I mean when is it going to stop. They just don't understand what I'm saying to them. Pt. was given ice chips and jello per her request and nursing staff asked if there was anything they could do to improve patient's situation. Pt. states I just need medication to help me feel better and make me go to sleep. Pt. complained of not being able to breathe because of this tape on my nose. Pt. has had no signs of distress and NGT tape is secured to tube and top of nose with a completely open and patent nare. Pt. refused NGT to be coiled and secured to gown, patient requested NGT to be taped across her neck but this nurse explained that the NGT can not be taped around the neck due to safety concerns. Pt. complained multiple times of I can't stand anything touching me, I'm just so jittery. Pt. did have some shaking of her arms when discussing this but not noted at any other times. Pt. did appear to sleep off and on later in the shift after receiving 2mg Dilaudid and 0.5mg Ativan IV. Patient continues to complain of frequent pain and nausea throughout the shift, requesting medication every 2-3 hours. Pt. abdomen is round but soft without distention noted. Pt. has had no vomiting this shift, no bowel movement. Patient did voice concern to multiple staff of When will Dr. Tolbert just take me to surgery, at what point does he just left me have it and get over with it. Explained to patient that this concern would need to be voiced to Dr. Tolbert himself as that would be a discussion between physician and patient and that it would depend upon patient's imaging and prognosis as determined by the physician. Also explained that typically the least invasive procedures are attempted first. Pt. had intake of two cups of ice and one cup of jello this shift. Pt. is resting well this AM with eyes closed and appears to be less agitated/anxious after receiving AM meds.
[2019-09-03] MEDS: cefTRIAXone 1,000 MG in sodium chloride 0.9% (plus) 50 ML 100 MG IV (08:44)
[2019-09-03] MEDS: pantoprazole 40 mg SDV IVP ×2 (08:45→20:02)
[2019-09-03] MEDS: enoxaparin 40 mg/0.4 mL Syringe SUBCUT (08:45)
--- NOTE | 2019-09-03 12:20 | P.PN_ITS ---
Subjective Subjective: Interval history: Kathryn reports she feels little bit better. She wants to go home soon. Surgery has clamped her NG tube. Medications: Reviewed: Yes Vitals/I&O/Wt Last Vital Signs Temp 98.6 F 09/03/19 11:43 Pulse 93 09/03/19 11:43 Resp 18 09/03/19 11:43 BP 181/91 09/03/19 11:43 Pulse Ox 93 09/03/19 11:43 09/02/19 09/03/19 09/03/19 22:59 06:59 14:59 Intake Total 618.333 / 1668.333 806.667 / 2475.000 884 / 884 Output Total 1000 / 1000 350 / 1350 200 / 200 Balance -381.667 / 668.333 456.667 / 1125.000 684 / 684 Physical Exam Narrative: EXAM NARRATIVE: General exam, called currently Cardiovascular regular rate and rhythm without murmur Lungs clear no wheezing or crackles Abdomen with a few bowel sounds. Slight tenderness Extremities no cyanosis clubbing or edema, cap refill brisk Data : 09/02/19 02:10 09/02/19 02:10 Micro: Microbiology 08/31/19 11:45 Urine Culture - Final Urine,Clean Catch A&P Assessment and plan (1) Small bowel obstruction: Appears to be improving Continue supportive care with IV fluids Appreciate surgery consultation NG has been clamped TSH and magnesium levels were normal Status: Acute (2) UTI (urinary tract infection): Urine culture without significant growth. Discontinue Rocephin Status: Acute (3) Macrocytosis: B12 and folate levels were checked and normal Status: Acute (4) Hypertension: Restart her home medication Status: Acute Additional A&P Information Depression/anxiety. Restart home medication Insomnia Chronic neck and back pain. Restart home medication DJD Multiple other medical problems as outlined above in past medical history Heparin for DVT prophylaxis Full code Attestations Medical Necessity Statement*: Needs continued hospitalization for further treatment of small bowel obstruction with supportive care Coding Level of Care Code Acute Warehouse Delivery Manager for [facility] Diagnoses Small bowel obstruction K56.609 UTI (urinary tract infection) N39.0 Macrocytosis D75.89 Hypertension I10
[2019-09-03] MEDS: lactulose oral liq 20 gm/30 mL UDC PO (13:15)
[2019-09-03] MEDS: sertraline 100 mg Tablet PO (13:15)
[2019-09-03] MEDS: lisinopril 5 mg Tablet PO (13:16)
[2019-09-03] MEDS: Fleet Enema 133 mL Enema PR (13:16)
[2019-09-03] MEDS: gabapentin 400 mg Capsule 800 MG PO ×2 (14:53→20:43)
[2019-09-03] MEDS: HYDROcodone-acetaminophen 10-325 mg Tablet 1 TAB PO (16:05)
[2019-09-03] MEDS: promethazine 25 mg/mL SDV 1 mL IM (16:05)
[2019-09-03] MEDS: ALPRAZolam 0.5 mg Tablet PO (16:05)
--- NOTE | 2019-09-03 16:32 | PC.SOCIAL ---
*IMM* Patient received the important message from medicare. Copy placed in the patients chart.
[2019-09-03] MEDS: temazepam 15 mg Capsule PO (20:44)
[2019-09-04] VITALS (7 sets, daily range): BP systolic 136–151; BP diastolic 70–76; PULSE 72–75; RESP 16–18; TEMP 36.3–37.1; O2SAT 91–97
[2019-09-04] MEDS: HYDROcodone-acetaminophen 10-325 mg Tablet 1 TAB PO ×3 (01:30→14:36)
[2019-09-04] MEDS: sodium chloride 0.9% 1,000 ML 75 ML IV (02:16)
[2019-09-04] MEDS: HYDROmorphone 1 mg/mL INJ 1 mL IVP ×2 (03:01→10:02)
[2019-09-04] MEDS: ondansetron 2 mg/ML SDV 2 mL 4 MG IVP ×2 (03:02→10:06)
[2019-09-04 06:05] LABS: Basophils # 0.1 10^3/uL (0.0-0.1); Basophils % 0.8 %; Eosinophils # 0.2 10^3/uL (0.0-0.8); Hematocrit 24.5 % (37.0-47.0); Hemoglobin 7.5 g/dL (11.5-15.3); Lymphocytes # 1.7 10^3/uL (0.8-4.8); Lymphocytes % 23.4 %; Mean Corpuscular HGB Conc 30.6 g/dL (30.0-36.0); Mean Corpuscular Hemoglobin 32.3 pg (28.0-34.0); Mean Corpuscular Volume 105.6 fL (81-99); Mean Platelet Volume 11.1 fL (7.4-10.4); Monocytes # 0.7 10^3/uL (0.2-0.9); Monocytes % 8.8 %; Neutrophils # 4.8 10^3/uL (1.8-7.7); Neutrophils % 64.7 %; Nucleated Red Blood Cells % 0 %; Platelet Count 221 10^3/cmm (130-400); Red Blood Count 2.32 10^6/uL (4.1-5.3); Red Cell Distribution Width 13.4 % (12.1-15.1); White Blood Count 7.4 10^3/uL (4.0-10.0)
[2019-09-04] MEDS: ALPRAZolam 0.5 mg Tablet PO ×2 (06:07→14:36)
[2019-09-04 06:23] LABS: Alanine Aminotransferase 59 U/L (0-33); Albumin Level 3.3 g/dL (3.5-5.2); Alkaline Phosphatase 69 IU/L (35-105); Anion Gap 14.8 (5-19); Aspartate Amino Transferase 84 U/L (0-32); Blood Urea Nitrogen 10 mg/dL (8-23); Calcium 8.7 mg/dL (8.5-10.5); Carbon Dioxide 25 mmol/L (22-29); Chloride 105 mmol/L (98-107); Globulin 2.5 g/dL (1.3-4.6); Glucose 91 mg/dL (65-115); Osmolality Calculated 290 mOsm/kg (285-295); Sodium 142 mmol/L (136-145); Total Bilirubin 0.2 mg/dL (0.15-1.2); Total Protein 5.8 g/dL (6.6-8.7)
[2019-09-04 06:42] LABS: Potassium 2.8 mmol/L (3.5-5.1)
[2019-09-04] MEDS: pantoprazole 40 mg SDV IVP (07:25)
[2019-09-04] MEDS: potassium chloride premix 40 MEQ/100 ML PREMIX 25 MEQ IV ×2 (07:26→11:09)
[2019-09-04] MEDS: enoxaparin 40 mg/0.4 mL Syringe SUBCUT (08:52)
[2019-09-04] MEDS: sertraline 100 mg Tablet PO (08:52)
[2019-09-04] MEDS: lisinopril 5 mg Tablet PO (08:52)
[2019-09-04] MEDS: gabapentin 400 mg Capsule 800 MG PO ×2 (08:52→14:37)
[2019-09-04] MEDS: amitriptyline 25 mg Tablet PO (08:52)
[2019-09-04] MEDS: lactulose oral liq 20 gm/30 mL UDC PO (12:02)
[2019-09-04 12:29] LABS: Hematocrit 26.2 % (37.0-47.0)
--- NOTE | 2019-09-04 13:29 | PM.DCS ---
Discharge Providers Date of Admission: 08/31/19 13:35 Date of Discharge: September 04, 2019 Attending Provider at Admission: Mehran Oden MD Attending Provider at Discharge: Mehran Oden MD Diagnoses at Discharge Discharge Diagnosis (1) Small bowel obstruction: Status: Acute Problem details: Resolved. Patient eating, passing bowel movements (2) UTI (urinary tract infection): Status: Acute Problem details: Urine did not grow significant organisms on culture. No need for antibiotic on discharge. (3) Macrocytosis: Status: Acute Problem details: B12, folate, TSH normal. (4) Hypertension: Status: Acute Problem details: Controlled Reason for Visit Reason for Visit: Reason For Visit: abd pain Hospital Course Hospital Course: Kathryn is a 73-year-old white female who presented to the hospital with vomiting and abdominal pain. CAT scan was consistent with small bowel obstruction. Gallbladder ultrasound was normal. Chest x-ray showed no infiltrate. Anemia and macrocytosis was noted so TSH, B12 folate level were obtained and all normal. Liver function tests normal. She was placed in the hospital for supportive care with IV fluids, surgery consult, and NG tube. Throughout the course of her hospital stay she gradually improved, started having bowel movements, and was able to start a diet. Hypokalemia was noted near the end of her hospital stay which was supplemented. The last day of her hospital stay, it was noted her hemoglobin was decreased from admission. She had had no evidence of active bleeding. Repeat hemoglobin was stable and 8 on repeat(7.5 previously). I discussed with her and her family that this would need to be repeated in a timely fashion later this week. They will also review whether colonoscopy or EGD is warranted with her primary care provider. I discussed discharge with surgery as well. They will see her in 4 weeks. Physical Exam Narrative: EXAM NARRATIVE: General exam no apparent distress Cardiovascular regular rate and rhythm without murmur Lungs clear Abdomen is soft. Bowel sounds are noted. Extremities no cyanosis clubbing or edema. Discharge Data Data Completed and Pending: Completed Studies During Hospitalization Category Date Time Status CT abdomen pelvis w con* [id number] Urge nt Cat Scan 08/31/19 10:21 Completed XR abdomen min 2V [id number] Routine Exams 09/01/19 06:00 Completed XR abdomen min 2V [id number] Routine Exams 09/02/19 07:00 Completed XR chest 1V [id number] Routine Exams 09/01/19 23:16 Completed XR chest 1V allie ble [id number] Stat Exams 09/02/19 16:46 Completed XR chest 1V allie ble [id number] Urgent Exams 08/31/19 12:38 Completed US gall bladder 7 [id number] Urgent Ultrasound 08/31/19 10:21 Completed Labs from last 24 hours 09/04/19 09/04/19 09/04/19 12:00 04:35 04:35 WBC 7.4 RBC 2.32 L Hgb 8.0 L 7.5 L Hct 26.2 L 24.5 L MCV 105.6 H MCH 32.3 MCHC 30.6 RDW 13.4 Plt Count 221 MPV 11.1 H Neut % (Auto) 64.7 Lymph % (Auto) 23.4 [place] % (Auto) 8.8 Eos % (Auto) 2.0 Baso % (Auto) 0.8 Neut # (Auto) 4.8 Lymph # (Auto) 1.7 [place] # (Auto) 0.7 Eos # (Auto) 0.2 Baso # (Auto) 0.1 Nucleated RBC % (a uto) 0 Nucleated RBCs # 0.0 Sodium 142 Potassium 2.8 L* Chloride 105 Carbon Dioxide 25 Anion Gap 14.8 BUN 10 Creatinine 0.6 Glucose 91 Calculated Osmolal ity 290 Calcium 8.7 Total Bilirubin 0.2 AST 84 H ALT 59 H Alkaline Phosphata se 69 Total Protein 5.8 L Albumin 3.3 L Globulin 2.5 Vitals: Last Vital Signs Temp 98.1 F 09/04/19 11:21 Pulse 72 09/04/19 11:21 Resp 18 09/04/19 11:21 BP 136/70 09/04/19 11:21 Pulse Ox 94 09/04/19 11:21 Discharge Plan Discharge Patient Disposition: Home, Self-Care Condition: Stable Prescriptions: New lactulose 20 gram/30 mL Solution 20 g PO Q12H Qty: 900 RF: 0 Protonix 40 mg tablet,delayed release (DR/EC) 40 mg PO BID Qty: 60 RF: 0 Continued sertraline [Zoloft] 100 mg tablet 100 mg PO DAILY RF: 0 gabapentin 400 mg capsule 800 mg PO TID RF: 0 oxycodone-acetaminophen 10-325 mg tablet 1 tab PO Q6H PRN (Reason: Pain) RF: 0 hydrocodone-acetaminophen 10-325 mg tablet 1 tab PO Q6H PRN (Reason: Pain) RF: 0 lisinopril 5 mg tablet 5 mg PO DAILY RF: 0 zolpidem [Ambien] 10 mg tablet 10 mg PO BEDTIME RF: 0 amitriptyline 25 mg tablet 25 mg PO DAILY RF: 0 temazepam 15 mg capsule 15 mg PO BEDTIME RF: 0 alprazolam 2 mg tablet 0.5 mg PO QID PRN (Reason: Anxiety) RF: 0 promethazine 25 mg tablet 25 mg PO TID PRN (Reason: Nausea) RF: 0 acyclovir 800 mg tablet 800 mg PO DAILY PRN (Reason: SHINGLES) RF: 0 cholecalciferol (vitamin D3) 25 mcg (1,000 unit) tablet 200 mcg PO DAILY RF: 0 Discharge Orders: Discharge Order (Routine); Ordered 09/04/19 Ordered By: Mehran Oden Referrals: Marcus Pozo MD [Family Provider] - 1-3 days (CBC, CMP in 3 days. Call Thursday and make a hospital follow up appointment with Dr. Pozo and to have CBC, CMP drawn in 3 days.) Sly Tolbert MD [Physician] - 1 month Discharge Diet: GI Soft Discharge Activity: Increase activity as tolerated Patient Instructions: Lactulose (By mouth), Pantoprazole (By mouth), Hypertension, Urinary Tract Infection in Women (GEN), Bowel Obstruction (DC) Activity Restrictions/Additional Instructions: Follow-up with your primary care provider next week. CBC and CMP on follow-up. Have them review whether an EGD and colonoscopy is appropriate at this time secondary to screening and/or continued anemia. 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
--- NOTE | 2019-09-04 13:47 | PM.PN ---
Subjective Subjective: Interval history: Patient tolerating liquid diet, had multiple bowel movements Vitals/I&O/Wt Last Vital Signs Temp 98.1 F 09/04/19 13:39 Pulse 72 09/04/19 13:39 Resp 18 09/04/19 13:39 BP 136/70 09/04/19 13:39 Pulse Ox 94 09/04/19 13:39 09/03/19 09/04/19 09/04/19 22:59 06:59 14:59 Intake Total 1822.667 / 4200.000 493.333 / 4200.000 812.917 / 812.917 Output Total 450 / 1590 400 / 1590 900 / 900 Balance 1372.667 / 2610.000 93.333 / 2610.000 -87.083 / -87.083 Physical Exam Narrative: EXAM NARRATIVE: Abdomen: Soft, nontender, nondistended Data : 09/04/19 12:00 09/04/19 04:35 A&P Assessment and plan (1) Small bowel obstruction: 73-year-old female small bowel obstruction, appears to have resolved with conservative measures DC home today Follow-up 4 weeks to schedule outpatient colonoscopy/egd for anemia Status: Resolved Attestations Medical Necessity Statement*: Small bowel obstruction resolved, going home today Coding Level of Care Code Acute General Manager [employer] Fwd Diagnoses Small bowel obstruction K56.609
== END 2019-09-04 15:37 | disposition home or self-care (01) | DRG 389 ==
LOC: ER 13:00 → MEDSURG 15:14
PROVIDERS: Family Medicine; Physician Assistant; Admitting Provider Internal Medicine; Family Provider Family Medicine; Visit Provider Internal Medicine
DX: K56.609 Unspecified intestinal obstruction, unspecified as to partial versus complete obstruction (principal); N39.0 Urinary tract infection, site not specified; G89.29 Other chronic pain; F41.8 Other specified anxiety disorders; M54.2 Cervicalgia; M54.9 Dorsalgia, unspecified; I10 Essential (primary) hypertension; G47.00 Insomnia, unspecified; Z96.653 Presence of artificial knee joint, bilateral; Z87.891 Personal history of nicotine dependence; D75.89 Other specified diseases of blood and blood-forming organs; Z98.890 Other specified postprocedural states; Z90.49 Acquired absence of other specified parts of digestive tract; Z79.891 Long term (current) use of opiate analgesic
CPT/HCPCS: 12345; 36415; 71045; 74019; 74177; 76705; 80048; 80053; 81001; 82607; 82746; 83036; 83605; 83690; 83735; 84443; 84484; 85014; 85018; 85025; 87086; 93005; 96372; 96375; 99284; C9113; J0360; J0696; J1170; J1644; J1650; J2060; J2270; J2405; J2550; J3480; J7030; Q9967

== ENCOUNTER 2021-02-04 08:59 | Outpatient (CLI) | payer MEDICARE, BC, SELFPAY ==
--- NOTE | 2021-02-04 09:13 | XR_ITS ---
WS: [id number] LATERAL LUMBAR SPINE: 3 view. Lateral radiographs are performed in upright neutral, flexion and extension to the patient's toleranc e. HISTORY: POST LAMINECTOMY SYNDROME COMPARISON: 12/28/2017 Posterior L3-4 and L4-5 fusion hardware has been placed. Interbody spacer at L3-4, L4-5 and may be at L5-S1. Disc spaces are narrowed and desiccated. No interval change in the hardware. No lucency aroun d the pedicle screws. There is marked facet joint arthritis at L4-5 and L5-S1. Increase in the lumbar lordosis. L3 anterolisthesis by 8 mm does not change significantly with flexio n or extension. The posterior vertebral body alignment at L4-5 and L5-S1 cannot be determined. 3 mm r etrolisthesis of of L2. Returns to near normal alignment during flexion with slight improvement durin g extension. XR/XR lumbar spine f/e only [id number] Impression: 1. Posterior lumbar fusion hardware with interbody spacers from L3 to S1. No e vidence for loosening or fractures. 2. L3 anterolisthesis by 8 mm with no instability. 3. New mild retrolisthesis of L2 by 3 mm on neutral imaging. There is mild ins tability with flexion and extension.
--- NOTE | 2021-02-04 09:45 | MR_ITS ---
WS: [id number] MRI LUMBAR SPINE WITH AND WITHOUT CONTRAST. HISTORY: POST LAMINECTOMY SYNDROME, LEFT lower extremity pain. COMPARISON: 12/23/2012 TECHNIQUE: Sagittal and axial multisequence imaging is submitted. Sagittal and axial T1 fat sat seque nces post-MultiHance 15 cc IV. Marked degenerative changes throughout the cervical, thoracic and lumbar spine. Degenerative thoracol umbar scoliosis. Reversal of the normal cervical lordosis. Increase in the lumbar lordosis. Severe advanced degenerative disc disease and facet arthritis throug hout the lumbar spine. Posterior fusion hardware is noted L3-4 and L5-S1. Conus terminates normally at L1. L3 anterolisthesis by 5 mm. L5 anterolisthesis by 7 mm. There is a small amount of reactive marrow ed stephany in the adjacent endplates at L2-3. L1-L2: Mild bilateral foraminal narrowing. L2-L3: Diffuse annular disc bulging and osteophytic ridging. Marked ligamentum flavum and facet arthr itis. Ligamentum flavum hypertrophy is asymmetric on the LEFT measuring up to 5 mm in diameter. Defor mity of the thecal sac predominantly due to facet and ligamentum flavum hypertrophy. Severe bilateral foraminal stenosis and moderate central stenosis. Subarticular recesses are partially obscured by ar tifact from the hardware. L3-L4: Diffuse annular disc bulging and osteophytic ridging. Large bilateral laminectomy defects. The re is at least moderate bilateral foraminal and subarticular recess stenosis. Arachnoiditis noted. L4-L5: Large bilateral laminectomy defects with clumping of nerve roots. Ligamentum flavum is been re sected. Mild facet arthritis. At least mild foraminal stenosis. L5-S1: Large thecal sac due to laminectomy defects. Osteophytic ridging. No central stenosis. Moderat e bilateral foraminal stenosis. No evidence for discitis or osteomyelitis. No soft tissue masses identified. LEFT renal cyst measures 2.8 x 1.5 cm. MR/MR lumbar spine wo/w con [id number] IMPRESSION: 1. Status post posterior lumbar fusions at L3-4 and L5-S1 with large bilatera l laminectomy defects beginning near the L3 level through L5. 2. No discitis or osteomyelitis. 3. Severe bilateral foraminal and moderate central stenosis at L2-3. Subarticu lar recesses are partially obscured by artifact from the orthopedic hardware bu t I do believe there is at least moderate stenosis. Stenosis at this level has progressed significantly since 2013. 4. Moderate bilateral foraminal subarticular recess stenosis at L3-4. 5. Mild foraminal stenosis at L4-5 and moderate at L5-S1. 6. Arachnoiditis. Clumping of the nerve roots is noted beginning at the L3 lev el. 7. Mild anterolisthesis of L3 and L5.
[2021-02-04 10:57] LABS: Blood Urea Nitrogen 14 mg/dL (8-23); Creatinine Clr Calc Pharmacy 49.5616
== END 2021-02-04 09:00 | disposition home or self-care (01) ==
PROVIDERS: Visit Provider Anesthesiology Pain Medicine
DX: M96.1 Postlaminectomy syndrome, not elsewhere classified (principal); G03.9 Meningitis, unspecified; M48.061 Spinal stenosis, lumbar region without neurogenic claudication; M48.07 Spinal stenosis, lumbosacral region; M43.26 Fusion of spine, lumbar region; M43.27 Fusion of spine, lumbosacral region
CPT/HCPCS: 72120; 72158; 82565; 84520; A9577

== ENCOUNTER 2023-01-18 16:41 | Inpatient (IN) | payer MEDICARE, BC, SELFPAY ==
--- NOTE | 2023-01-18 | CTR_ITS ---
PROCEDURE INFORMATION: Exam: CT Head Without Contrast Exam date and time: 01/18/2023 5:07 PM Age: 77 years old Clinical indication: Stroke-like symptoms; Altered mental status/memory loss; RT lower extremity weakness; Additional info: AMS TECHNIQUE: Imaging protocol: Computed tomography of the head without contrast. Radiation optimization: All CT scans at this facility use at least one of these dose optimization techniques: automated exposure control; mA and/or kV adjustment per patient size (includes targeted exams where dose is matched to clinical indication); or iterative reconstruction. Other technique: STROKE PROTOCOL was implemented. REPORTING DATA: Count of CT and Cardiac NM exams in prior 12 months: This patient has received 0 known CTs and 0 known cardiac nuclear medicine studies in the 12 months prior to the current study. COMPARISON: No relevant prior studies available. RADIATION DOSE METRICS: Total DLP (mGy-cm): 890.88 FINDINGS: Brain: There is moderate cortical atrophy. Low-density changes in the white matter are consistent with nonspecific small vessel chronic ischemic change. There is no intracranial mass, hemorrhage or edema. Cerebral ventricles: No ventriculomegaly. Paranasal sinuses: Visualized sinuses are unremarkable. No fluid levels. Mastoid air cells: Visualized mastoid air cells are well aerated. Bones/joints: Unremarkable. No acute fracture. Soft tissues: Unremarkable. CT/CT head thrombolytic [id number] IMPRESSION: No acute intracranial finding. ASSESSMENT: ASPECTS ([facility] Stroke Program Early CT Score) is 10.
[2023-01-18 16:43] VITALS: BP 180/97; PULSE 82; RESP 18; TEMP 36.8; O2SAT 97; BMI 22.4
--- NOTE | 2023-01-18 17:05 | PC.NURSE ---
Called stroke alert due to onset of inability to speak, weakness, and possible ams
--- NOTE | 2023-01-18 17:12 | ECG_ITS ---
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 Measurements Intervals Hondo Rate: 86 P: 77 NC: 141 QRS: 42 QRSD: 82 T: 38 QT: 381 QTc: 457 Interpretive Statements SINUS RHYTHM NONSPECIFIC T-WAVE ABNORMALITY Compared to ECG 08/31/2019 10:42:37 T-wave abnormality now present Electronically Signed On 01-18-2023 19:25:31 CDT by Jeana Arriaga M.D. [email or web address]
--- NOTE | 2023-01-18 17:12 | XRR_ITS ---
PROCEDURE INFORMATION: Exam: XR Chest Exam date and time: 01/18/2023 5:46 PM Age: 77 years old Clinical indication: Condition or disease; Patient HX: HTN; Weakness; Stroke protocol; Ex smoker TECHNIQUE: Imaging protocol: Radiologic exam of the chest. Views: 1 view. COMPARISON: CR XR chest 1V portable [id number] 09/02/2019 5:06 PM FINDINGS: Lungs: Visualized portions of the lungs are clear. There is no pulmonary venous congestion. Pleural spaces: Unremarkable. No pleural effusion. No pneumothorax. Heart/Mediastinum: Heart is within normal limits of size. Bones/joints: There are new neurostimulator electrodes seen projected over the midthoracic spine at the T6 and T7 level. XR/XR chest 1V portable [id number] IMPRESSION: New neurostimulator electrodes noted. No acute infiltrate.
--- NOTE | 2023-01-18 17:21 | ED_ITS ---
Documented by User: Gordon Mejias DO 01/18/23 17:36 HPI - Weakness General: Chief complaint: Weakness Stated complaint: n/v, confused, stroke 1 week ago Time Seen by Provider: 01/18/23 17:05 History of Present Illness: Patient presents to the ER with the inability to speak words and strokelike symptoms. Patient is also having nausea and vomiting. Approximately 10 days ago patient had a stroke was taken to [facility] and transferred to [facility]. Few days after that patient was discharged and went home with very few deficits. And is close to baseline. Patient's daughter stated yesterday the patient started acting odd looking around and saying statements like oh well wants that and while pointing to clouds in the cory. Patient's daughter stated this morning patient was even more confused and lacked the ability to speak words and can just make noises. Patient's daughter says she woke up this way. She also says patient is throwing up mucus which is very thick. Patient is able to follow some simple commands in the ER such as moves all 4 extremities. Patient did state her birthday clear to the nurse but she is unable to speak any other words. Review of Systems General: Reports: ROS unobtainable due to medical condition [facility] ED PFSH: Medical History (Updated 01/18/23 @ 19:37 by Kvng Perla MD) Chronic pain Depression DJD (degenerative joint disease) Hypertension Controlled Insomnia Surgical History History of back surgery History of bladder suspension procedure History of colon resection History of hernia repair History of partial hysterectomy History of total knee replacement BOTH KNEES Hx of breast implants, bilateral S/P tonsillectomy Family History Mother Hypertension Social History Smoking and tobacco/nicotine status: former use of tobacco/nicotine Alcohol intake: never Substance/Drug Use: never Physical Exam Const: COMMON NORMALS: average body habitus, no limitations (Inability to speak words), alert and well nourished HENMT: COMMON NORMALS: normocephalic, atraumatic, external ears normal, Normal external nose present, moist oral mucous membranes and oropharynx normal HEAD & SCALP: normocephalic and atraumatic NOSE: Normal external nose present EXTERNAL EAR: Yes external ears normal Eye: COMMON NORMALS: Equal, round and reactive pupils present, EOMs intact bilaterally, conjunctivae normal and no scleral icterus CONJUNCTIVA: Yes conjunctivae normal PUPIL: Yes Equal, round and reactive pupils present Neck/C-Spine: COMMON NORMALS: full ROM, no lymphadenopathy, supple, no meningeal signs, no JVD and Thyroid normal THYROID: Thyroid normal Chest: COMMONS NORMALS: normal inspection of the chest and normal palpation of entire chest wall Resp: COMMON NORMALS: normal respiratory effort, No retractions, No use of accessory muscles and clear to auscultation bilaterally AUSCULTATION: clear to auscultation bilaterally Cardio: COMMON NORMALS: no JVD, regular rate, regular rhythm, S1 normal heart sound present, S2 normal heart sound present, No gallops present (Cardio), No clicks present (Cardio), No murmurs present (Cardio) and No rub (Cardio) RATE: regular rate RHYTHM: regular rhythm HEART SOUNDS: S1 normal heart sound present and S2 normal heart sound present GI: COMMON NORMALS: Normal to inspection, nondistended, normoactive bowel sounds present, Soft to palpation, non-tender, No hepatosplenomegaly present and no masses PALPATION: Yes Soft to palpation and Yes No hepatosplenomegaly present Extremity: NARRATIVE EXTREMITY EXAM: Patient able to move all 4 extremities. Able to follow simple commands. Upper extremities left appears slightly weaker than right. Neuro: COMMON NORMALS: moves all extremities SENSORIUM/ORIENTATION: Yes alert MENINGEAL SIGNS: Yes no meningeal signs SPEECH: expressive aphasia MOTOR EXAM: No Other motor observations present (Can move all extremities but) PUPIL EXAM: Normal pupillary reactivity/response: right, left and bilateral Course Vital Signs: Vital signs: Vital Signs Temperature 98.2 F 01/18/23 16:43 Pulse Rate 83 01/18/23 18:55 Respiratory Rate 16 01/18/23 18:55 Blood Pressure 173/76 01/18/23 18:55 Pulse Oximetry 93 01/18/23 18:55 Oxygen Delivery Me thod Room Air 01/18/23 16:43 MDM - Weakness Medical Decision Making Discussed case with Dr. Cedillo. Due to the unknown last known well time of at least last night patient will not be a tPA candidate. Differential Diagnosis Unlikely acute myocardial infarction, anemia, hypoglycemia, hypothyroidism, rhabdomyolysis, sepsis or dehydration Medical Records I reviewed the patient's medical records. Lab Data I reviewed the patient's lab results. 01/18/23 17:26 01/18/23 18:[address] 01/18/23 00:00 IMPRESSION: No acute intracranial finding. ASSESSMENT: ASPECTS (Jacqueline Stroke Program Early CT Score) is 10. Chest X-Ray 01/18/23 17:12 IMPRESSION: New neurostimulator electrodes noted. No acute infiltrate. Laboratory Results WBC 5.94 10^3/uL (3.29-11.43) 01/18/23 17: RBC 3.83 10^6/uL (3.85-5.65) L 01/18/23 17: Hgb 12.20 g/dL (11.27-16.99) 01/18/23 17: Hct 39.2 % (36-47) 01/18/23 17: MCV 102.3 fl (85-98) H 01/18/23 17: MCH 31.9 pg (27-33) 01/18/23 17: MCHC 31.1 g/dL (30-55) 01/18/23 17: RDW 16.5 % (12.1-15.1) H 01/18/23 17: Plt Count 244 10^3/cmm (157-399) 01/18/23 17: MPV 11.4 fL (7.4-10.4) H 01/18/23 17: Neut % (Auto) 61.7 % 01/18/23 17: Lymph % (Auto) 26.6 % 01/18/23 17: Bartholomew % (Auto) 9.6 % 01/18/23 17: Eos % (Auto) 0.8 % 01/18/23 17: Baso % (Auto) 1.0 % 01/18/23 17: Neut # (Auto) 3.66 10^3/uL (1.8-7.7) 01/18/23 17: Lymph # (Auto) 1.6 10^3/uL (0.8-4.8) 01/18/23 17: Bartholomew # (Auto) 0.6 10^3/uL (0.2-0.9) 01/18/23 17:26 Eos # (Auto) 0.1 10^3/uL (0.0-0.8) 01/18/23 17:26 Baso # (Auto) 0.1 10^3/uL (0.0-0.1) 01/18/23 17:26 Nucleated RBC % (auto) 0 % 01/18/23 17: Nucleated RBCs # 0.0 /100WBC 01/18/23 17:26 PT 12.10 SECONDS (12.1-14.9) 01/18/23 17: INR 0.87 (0.8-1.2) 01/18/23 17:26 Sodium 138 mmol/L (136-145) 01/18/23 18:15 Potassium 3.2 mmol/L (3.5-5.1) L 01/18/23 18:15 Chloride 100 mmol/L (98-107) 01/18/23 18:15 Carbon Dioxide 27 mmol/L (22-29) 01/18/23 18:15 Anion Gap 14.2 (5-19) 01/18/23 18:15 BUN 14 mg/dL (8-23) 01/18/23 18:15 Creatinine 0.6 mg/dL (0.5-0.9) 01/18/23 18:15 GFR Calculation Not Reportable 01/18/23 18:15 Glucose 105 mg/dL (65-115) 01/18/23 18:15 POC Glucose 98 mg/dL (70-110) 01/18/23 17:29 Calculated Osmolality 287 mOsm/kg (285-295) 01/18/23 18:15 Calcium 9.3 mg/dL (8.5-10.5) 01/18/23 18:15 Magnesium 2.1 mg/dL (1.7-2.3) 01/18/23 18:15 Total Bilirubin 0.4 mg/dL (0.15-1.2) 01/18/23 18:15 AST 15 U/L (0-32) 01/18/23 18:15 ALT 15 U/L (0-33) 01/18/23 18:15 Alkaline Phosphatase 73 U/L (35-105) 01/18/23 18:15 Ammonia 20 umol/L (11-51) 01/18/23 18:15 C-Reactive Protein 3.0 mg/L (0.0-4.9) 01/18/23 18:15 Total Protein 6.7 g/dL (6.6-8.7) 01/18/23 18:15 Albumin 3.7 g/dL (3.5-5.2) 01/18/23 18:15 Globulin 3.0 g/dL (1.3-4.6) 01/18/23 18:15 TSH 0.26 uIU/mL (0.27-4.20) L 01/18/23 18:15 Urine Color Yellow (Yellow) 01/18/23 17:58 Urine Appearance Cloudy (CLEAR) A 01/18/23 17:58 Urine pH 8 (5-7) H 01/18/23 17:58 Ur Specific [place] 1.010 (1.005-1.030) 01/18/23 17:58 Urine Protein Neg (Negative) 01/18/23 17:58 Urine Glucose (UA) Norm (Normal) 01/18/23 17:58 Urine Ketones 1+ (Negative) H 01/18/23 17:58 Urine Blood Neg (Negative) 01/18/23 17:58 Urine Nitrate Negative (Negative) 01/18/23 17:58 Urine Bilirubin Neg (Negative) 01/18/23 17:58 Prot Sulfosalicylic Acd Negative (Negative) 01/18/23 17:58 Urine Urobilinogen Neg mg/dL (Negative) 01/18/23 17:58 Ur Leukocyte Esterase Negative (Negative) 01/18/23 17:58 Urine Opiates Screen Positive ng/mL (Negative) H 01/18/23 17:58 Ur Barbiturates Screen Negative ng/mL (Negative) 01/18/23 17:58 Ur Phencyclidine Scrn Negative ng/mL (Negative) 01/18/23 17:58 Ur Amphetamines Screen Negative ng/mL (Negative) 01/18/23 17:58 U Benzodiazepines Scrn Positive ng/mL (Negative) H 01/18/23 17:58 Urine Cocaine Screen Negative ng/mL (Negative) 01/18/23 17:58 U Marijuana (THC) Screen Positive ng/mL (Negative) H 01/18/23 17:58 All radiology interpretation(s) finalized by discharge Discharge Plan Discharge Patient Disposition: Placed in Observation Clinical Impression: Altered mental status, Weakness Condition: Stable Prescriptions: No Action sertraline [Zoloft] 100 mg tablet 100 mg PO DAILY gabapentin 400 mg capsule 800 mg PO TID oxycodone-acetaminophen 10-325 mg tablet 1 tab PO Q6H PRN (Reason: Pain) hydrocodone-acetaminophen 10-325 mg tablet 1 tab PO Q6H PRN (Reason: Pain) lisinopril 5 mg tablet 5 mg PO DAILY zolpidem [Ambien] 10 mg tablet 10 mg PO BEDTIME amitriptyline 25 mg tablet 25 mg PO DAILY temazepam 15 mg capsule 15 mg PO BEDTIME alprazolam 2 mg tablet 0.5 mg PO QID PRN (Reason: Anxiety) promethazine 25 mg tablet 25 mg PO TID PRN (Reason: Nausea) acyclovir 800 mg tablet 800 mg PO DAILY PRN (Reason: SHINGLES) cholecalciferol (vitamin D3) 25 mcg (1,000 unit) tablet 200 mcg PO DAILY Rx Instructions: (8,000 UNITS DAILY) lactulose 20 gram/30 mL Solution 20 g PO Q12H Qty: 900 0RF Protonix 40 mg tablet,delayed release (DR/EC) 40 mg PO BID Qty: 60 0RF Referrals: Marcus Pozo MD [Primary Care Provider] - Coding Level of Care Code ED Community Board Member for Chg Fwd Documented by User: Kvng Perla MD 01/18/23 19:37 HPI - Weakness General: Chief complaint: Weakness Stated complaint: n/v, confused, stroke 1 week ago Time Seen by Provider: 01/18/23 17:05 PFSH ED PFSH: Medical History (Updated 01/18/23 @ 19:37 by Kvng Perla MD) Chronic pain Depression DJD (degenerative joint disease) Hypertension Controlled Insomnia Surgical History History of back surgery History of bladder suspension procedure History of colon resection History of hernia repair History of partial hysterectomy History of total knee replacement BOTH KNEES Hx of breast implants, bilateral S/P tonsillectomy Family History Mother Hypertension Social History Smoking and tobacco/nicotine status: former use of tobacco/nicotine Alcohol intake: never Substance/Drug Use: never Course Vital Signs: Vital signs: Vital Signs Temperature 98.2 F 01/18/23 16:43 Pulse Rate 83 01/18/23 18:55 Respiratory Rate 16 01/18/23 18:55 Blood Pressure 173/76 01/18/23 18:55 Pulse Oximetry 93 01/18/23 18:55 Oxygen Delivery Me thod Room Air 01/18/23 16:43 MDM - Weakness Medical Decision Making Discussed case with Dr. Cedillo. Due to the unknown last known well time of at least last night patient will not be a tPA candidate. Patient presents with altered male status she had some slurred speech and weakness as well head CT here is normal her drug screen was positive for marijuana benzos and opiates could be causing her symptoms. Did review her records from [place] she refused an MRI while she was there they did not see anything on her head CT I spoke to the hospitalist will admit at this time for her confusion Lab Data 01/18/23 17:26 01/18/23 18:[address] 01/18/23 00:00 IMPRESSION: No acute intracranial finding. ASSESSMENT: ASPECTS (Jacqueline Stroke Program Early CT Score) is 10. Chest X-Ray 01/18/23 17:12 IMPRESSION: New neurostimulator electrodes noted. No acute infiltrate. Laboratory Results WBC 5.94 10^3/uL (3.29-11.43) 01/18/23 17: RBC 3.83 10^6/uL (3.85-5.65) L 01/18/23 17:26 Hgb 12.20 g/dL (11.27-16.99) 01/18/23 17:26 Hct 39.2 % (36-47) 01/18/23 17: MCV 102.3 fl (85-98) H 01/18/23 17: MCH 31.9 pg (27-33) 01/18/23 17: MCHC 31.1 g/dL (30-55) 01/18/23 17: RDW 16.5 % (12.1-15.1) H 01/18/23 17: Plt Count 244 10^3/cmm (157-399) 01/18/23 17: MPV 11.4 fL (7.4-10.4) H 01/18/23 17: Neut % (Auto) 61.7 % 01/18/23 17: Lymph % (Auto) 26.6 % 01/18/23 17: Bartholomew % (Auto) 9.6 % 01/18/23 17: Eos % (Auto) 0.8 % 01/18/23 17: Baso % (Auto) 1.0 % 01/18/23 17: Neut # (Auto) 3.66 10^3/uL (1.8-7.7) 01/18/23 17: Lymph # (Auto) 1.6 10^3/uL (0.8-4.8) 01/18/23 17: Bartholomew # (Auto) 0.6 10^3/uL (0.2-0.9) 01/18/23 17: Eos # (Auto) 0.1 10^3/uL (0.0-0.8) 01/18/23 17: Baso # (Auto) 0.1 10^3/uL (0.0-0.1) 01/18/23 17: Nucleated RBC % (auto) 0 % 01/18/23 17: Nucleated RBCs # 0.0 /100WBC 01/18/23 17: PT 12.10 SECONDS (12.1-14.9) 01/18/23 17: INR 0.87 (0.8-1.2) 01/18/23 17: Sodium 138 mmol/L (136-145) 01/18/23 18:15 Potassium 3.2 mmol/L (3.5-5.1) L 01/18/23 18:15 Chloride 100 mmol/L (98-107) 01/18/23 18:15 Carbon Dioxide 27 mmol/L (22-29) 01/18/23 18:15 Anion Gap 14.2 (5-19) 01/18/23 18:15 BUN 14 mg/dL (8-23) 01/18/23 18:15 Creatinine 0.6 mg/dL (0.5-0.9) 01/18/23 18:15 GFR Calculation Not Reportable 01/18/23 18:15 Glucose 105 mg/dL (65-115) 01/18/23 18:15 POC Glucose 98 mg/dL (70-110) 01/18/23 17:29 Calculated Osmolality 287 mOsm/kg (285-295) 01/18/23 18:15 Calcium 9.3 mg/dL (8.5-10.5) 01/18/23 18:15 Magnesium 2.1 mg/dL (1.7-2.3) 01/18/23 18:15 Total Bilirubin 0.4 mg/dL (0.15-1.2) 01/18/23 18:15 AST 15 U/L (0-32) 01/18/23 18:15 ALT 15 U/L (0-33) 01/18/23 18:15 Alkaline Phosphatase 73 U/L (35-105) 01/18/23 18:15 Ammonia 20 umol/L (11-51) 01/18/23 18:15 C-Reactive Protein 3.0 mg/L (0.0-4.9) 01/18/23 18:15 Total Protein 6.7 g/dL (6.6-8.7) 01/18/23 18:15 Albumin 3.7 g/dL (3.5-5.2) 01/18/23 18:15 Globulin 3.0 g/dL (1.3-4.6) 01/18/23 18:15 TSH 0.26 uIU/mL (0.27-4.20) L 01/18/23 18:15 Urine Color Yellow (Yellow) 01/18/23 17:58 Urine Appearance Cloudy (CLEAR) A 01/18/23 17:58 Urine pH 8 (5-7) H 01/18/23 17:58 Ur Specific [place] 1.010 (1.005-1.030) 01/18/23 17:58 Urine Protein Neg (Negative) 01/18/23 17:58 Urine Glucose (UA) Norm (Normal) 01/18/23 17:58 Urine Ketones 1+ (Negative) H 01/18/23 17:58 Urine Blood Neg (Negative) 01/18/23 17:58 Urine Nitrate Negative (Negative) 01/18/23 17:58 Urine Bilirubin Neg (Negative) 01/18/23 17:58 Prot Sulfosalicylic Acd Negative (Negative) 01/18/23 17:58 Urine Urobilinogen Neg mg/dL (Negative) 01/18/23 17:58 Ur Leukocyte Esterase Negative (Negative) 01/18/23 17:58 Urine Opiates Screen Positive ng/mL (Negative) H 01/18/23 17:58 Ur Barbiturates Screen Negative ng/mL (Negative) 01/18/23 17:58 Ur Phencyclidine Scrn Negative ng/mL (Negative) 01/18/23 17:58 Ur Amphetamines Screen Negative ng/mL (Negative) 01/18/23 17:58 U Benzodiazepines Scrn Positive ng/mL (Negative) H 01/18/23 17:58 Urine Cocaine Screen Negative ng/mL (Negative) 01/18/23 17:58 U Marijuana (THC) Screen Positive ng/mL (Negative) H 01/18/23 17:58 Discharge Plan Discharge Patient Disposition: Placed in Observation Clinical Impression: Altered mental status, Weakness Condition: Stable Prescriptions: No Action sertraline [Zoloft] 100 mg tablet 100 mg PO DAILY gabapentin 400 mg capsule 800 mg PO TID oxycodone-acetaminophen 10-325 mg tablet 1 tab PO Q6H PRN (Reason: Pain) hydrocodone-acetaminophen 10-325 mg tablet 1 tab PO Q6H PRN (Reason: Pain) lisinopril 5 mg tablet 5 mg PO DAILY zolpidem [Ambien] 10 mg tablet 10 mg PO BEDTIME amitriptyline 25 mg tablet 25 mg PO DAILY temazepam 15 mg capsule 15 mg PO BEDTIME alprazolam 2 mg tablet 0.5 mg PO QID PRN (Reason: Anxiety) promethazine 25 mg tablet 25 mg PO TID PRN (Reason: Nausea) acyclovir 800 mg tablet 800 mg PO DAILY PRN (Reason: SHINGLES) cholecalciferol (vitamin D3) 25 mcg (1,000 unit) tablet 200 mcg PO DAILY Rx Instructions: (8,000 UNITS DAILY) lactulose 20 gram/30 mL Solution 20 g PO Q12H Qty: 900 0RF Protonix 40 mg tablet,delayed release (DR/EC) 40 mg PO BID Qty: 60 0RF Referrals: Marcsu Pozo MD [Primary Care Provider] - Coding Level of Care Code ED Community Board Member for Corwin Alonso
[2023-01-18 17:32] LABS: Glucose Point of Care 98 mg/dL (70-110)
[2023-01-18 17:46] LABS: INR 0.87 (0.8-1.2)
[2023-01-18 17:48] LABS: Basophils # 0.1 10^3/uL (0.0-0.1); Eosinophils # 0.1 10^3/uL (0.0-0.8); Eosinophils % 0.8 %; Hematocrit 39.2 % (36-47); Lymphocytes # 1.6 10^3/uL (0.8-4.8); Lymphocytes % 26.6 %; Mean Corpuscular HGB Conc 31.1 g/dL (30-55); Mean Corpuscular Hemoglobin 31.9 pg (27-33); Mean Corpuscular Volume 102.3 fl (85-98); Mean Platelet Volume 11.4 fL (7.4-10.4); Monocytes # 0.6 10^3/uL (0.2-0.9); Monocytes % 9.6 %; Neutrophils # 3.66 10^3/uL (1.8-7.7); Neutrophils % 61.7 %; Nucleated Red Blood Cells % 0 %; Platelet Count 244 10^3/cmm (157-399); Red Blood Count 3.83 10^6/uL (3.85-5.65); Red Cell Distribution Width 16.5 % (12.1-15.1); White Blood Count 5.94 10^3/uL (3.29-11.43)
[2023-01-18] MEDS: ondansetron 2 mg/ML SDV 2 mL 4 MG IVP (17:49)
[2023-01-18 18:17] LABS: Add Urine Microscopic? NO; Charge for UA Resulting for Rev
[2023-01-18 18:25] LABS: Bilirubin Urine Neg (Negative); Blood Urine Neg (Negative); Glucose Urine UA Norm (Normal); Ketones Urine 1+ (Negative); Leukocyte Esterase Urine Negative (Negative); Nitrate Urine Negative (Negative); Protein Urine Neg (Negative); Sulfosalicylic Acid Urine Negative (Negative); Urine Appearance Cloudy (CLEAR); Urine Color Yellow (Yellow); Urobilinogen Urine Neg (Negative); pH Urine 8 (5-7)
[2023-01-18 18:33] LABS: THC Screen Urine Positive (Negative)
[2023-01-18 18:34] LABS: Amphetamines Screen Urine Negative (Negative); Barbiturates Screen Urine Negative (Negative); Benzodiazepines Screen Urine Positive (Negative); Cocaine Screen Urine Negative (Negative); Opiate Screen Urine Positive (Negative); PCP Screen Urine Negative (Negative)
[2023-01-18 18:42] LABS: Ammonia 20 umol/L (11-51)
[2023-01-18 18:54] LABS: Alanine Aminotransferase 15 U/L (0-33); Albumin Level 3.7 g/dL (3.5-5.2); Alkaline Phosphatase 73 U/L (35-105); Anion Gap 14.2 (5-19); Aspartate Amino Transferase 15 U/L (0-32); Blood Urea Nitrogen 14 mg/dL (8-23); Calcium 9.3 mg/dL (8.5-10.5); Carbon Dioxide 27 mmol/L (22-29); Chloride 100 mmol/L (98-107); Creatinine Clr Calc Pharmacy 45.4894; Glucose 105 mg/dL (65-115); Magnesium 2.1 mg/dL (1.7-2.3); Osmolality Calculated 287 mOsm/kg (285-295); Potassium 3.2 mmol/L (3.5-5.1); Sodium 138 mmol/L (136-145); Thyroid Stimulating Hormone 0.26 uIU/mL (0.27-4.20); Total Bilirubin 0.4 mg/dL (0.15-1.2); Total Protein 6.7 g/dL (6.6-8.7)
[2023-01-18 18:55] VITALS: BP 173/76; PULSE 83; RESP 16; O2SAT 93
[2023-01-18 20:30] VITALS: BP 173/76; PULSE 83; RESP 16; TEMP 36.8; O2SAT 93
[2023-01-18 21:09] VITALS: RESP 20
[2023-01-18] MEDS: morphine 4 mg/mL SDV 1 mL 2 MG IVP (21:09)
--- NOTE | 2023-01-18 21:18 | PC.NURSE ---
Patient arrived to the floor. Stated for me to call her daughter. While on the phone with daughter the pt is requesting that she come pick her up. Daughter assured patient reasons for being here. Requesting pain medication and something to help her sleep. Dr. Jaramillo was notified. One time dose of IV morphine ordered and given. Patient uncooperative with admission questions. Just shakes her head no when asking any questions. Able to communicates needs. Bed alarm on. Call light within reach. Daughter requested a call with any changes in condition or care.
[2023-01-18 21:23] VITALS: BP 188/84; PULSE 83; RESP 18; TEMP 36.6; O2SAT 95
--- NOTE | 2023-01-18 22:04 | P.HP_ITS ---
Providers/Chief Complaint Admitting Physician: Keyla Jaramillo MD Primary Care Provider: Marcus Pozo MD Chief Complaint: n/v, confused, stroke 1 week ago History of Present Illness Kathryn Seals is a 77 year old female with history of hypertension Depression/anxiety Insomnia Chronic neck and back pain DJD was brought in by daughter for worsening altered mental status. Spoke with the daughter and as per the discussion she had slurred speech and confusion 1 week ago. She was taken to [facility] for further work-up for possible stroke. CT head done there was negative but they could not do MRI brain because of the spinal neurostimulator. She was started on Plavix and Lipitor .she was discharged 2 days later, was oriented x3 at home and was doing well until yesterday when she again became confused and agitated. There is no history of fever cold cough shortness of breath chest pain abdominal pain or urinary complaints. Review of Systems Narrative: Unable to assess due to altered mental status Medications/Allergies Home Medications Medication Instructions Recorded Confirmed Last Taken Type acyclovir 800 mg tablet 800 mg PO DAILY PRN SHINGLES 08/04/19 08/31/19 Unknown History alprazolam 2 mg tablet 0.5 mg PO QID PRN Anxiety 08/04/19 08/31/19 08/31/19 History amitriptyline 25 mg tablet 25 mg PO DAILY 08/04/19 08/31/19 08/30/19 History cholecalciferol (vitamin D3) 25 200 mcg PO DAILY 08/04/19 08/31/19 08/31/19 History mcg (1,000 unit) tablet gabapentin 400 mg capsule 800 mg PO TID 08/04/19 08/31/19 08/31/19 History hydrocodone 10 mg-acetaminophen 1 tab PO Q6H PRN Pain 08/04/19 08/31/19 Unknown History 325 mg tablet lisinopril 5 mg tablet 5 mg PO DAILY 08/04/19 08/31/19 08/30/19 History oxycodone-acetaminophen 10 mg-325 1 tab PO Q6H PRN Pain 08/04/19 08/31/19 Unknown History mg tablet promethazine 25 mg tablet 25 mg PO TID PRN Nausea 08/04/19 08/31/19 Unknown History sertraline 100 mg tablet (Zoloft) 100 mg PO DAILY 08/04/19 08/31/19 08/31/19 History temazepam 15 mg capsule 15 mg PO BEDTIME 08/04/19 08/31/19 08/30/19 History zolpidem 10 mg tablet (Ambien) 10 mg PO BEDTIME 08/04/19 08/31/19 08/30/19 History lactulose 20 gram/30 mL oral 20 g (30 mL) PO Q12H #900 mL 09/04/19 Unknown Rx solution pantoprazole 40 mg tablet,delayed 40 mg PO BID #60 tabs 09/04/19 Unknown Rx release (Protonix) Allergies Allergy/AdvReac Type Severity Reaction Status Date / Time quinine Allergy Intermediate rash Verified 08/04/19 09:13 PFSH Acute PFSH: Medical History Chronic pain Depression DJD (degenerative joint disease) Hypertension Controlled Insomnia Surgical History History of back surgery History of bladder suspension procedure History of colon resection History of hernia repair History of partial hysterectomy History of total knee replacement BOTH KNEES Hx of breast implants, bilateral S/P tonsillectomy Family History Mother Hypertension Social History Smoking and tobacco/nicotine status: former use of tobacco/nicotine Alcohol intake: never Substance/Drug Use: never Vitals/I&O/Wt Last Vital Signs Temp 98.2 F 01/18/23 20:30 Pulse 83 01/18/23 20:30 Resp 20 H 01/18/23 21:09 BP 173/76 01/18/23 20:30 Pulse Ox 93 01/18/23 20:30 O2 Del Method Room Air 01/18/23 20:53 Weight last 48 hrs Weight 52.163 kg Physical Exam Narrative: She is alert awake oriented x2, not comprehensive and agitated Chest clear to auscultation bilaterally Cardiovascular normal heart sounds no murmurs Abdomen soft nontender nondistended normal bowel sounds Extremities no edema noted bilaterally Neurological no focal deficits seen, speech normal Data 01/18/23 17:26 01/18/23 18:15 CXR: Radiologist's impression: FINDINGS: Lungs: Visualized portions of the lungs are clear. There is no pulmonary venous congestion. Pleural spaces: Unremarkable. No pleural effusion. No pneumothorax. Heart/Mediastinum: Heart is within normal limits of size. Bones/joints: There are new neurostimulator electrodes seen projected over the midthoracic spine at the T6 and T7 level. CT Head: Radiologist's impression: No acute intracranial findings EKG 1: My Interpretation: Normal sinus rhythm Normal axis No acute ST-T changes A&P Assessment and plan (1) Altered mental status: (2) Weakness: Plan 77 year old female with history of hypertension Depression/anxiety Insomnia Chronic neck and back pain DJD was brought in by daughter for worsening altered mental status likely secondary to possible stroke. CT head was negative Continue Plavix and Lipitor Plan to get MRI brain in a.m. Daughter to bring the remote for spinal neurostimulator to be switched off Continue home medications for now IV Pepcid 20 mg twice a day for stress ulcer prophylaxis Intermittent compression devices for DVT prophylaxis Regular diet she is a DNR As per the daughter[Ms Laurita Keller] Attestations Medical Necessity Statement*: She might need continued hospitalization for more than 2 days for further work- up for altered mental status. Time Spent in Patient Care: 30 minutes Coding Level of Care Code Acute Code for Chg Fwd Diagnoses Altered mental status R41.82 Weakness R53.1 Time Spent (min) 30
[2023-01-18] MEDS: sodium chloride 0.9% 1,000 ML 60 ML IV (22:53)
[2023-01-18 23:56] VITALS: BP 178/79; PULSE 75; RESP 17; TEMP 36.5; O2SAT 95
[2023-01-19] VITALS (9 sets, daily range): BP systolic 124–194; BP diastolic 62–86; PULSE 60–97; RESP 15–18; TEMP 36.2–36.8; O2SAT 94–97
[2023-01-19] MEDS: oxyCODONE-APAP 5-325 mg Tablet 1 TAB PO ×2 (02:46→08:01)
[2023-01-19 05:19] LABS: Basophils # 0.1 10^3/uL (0.0-0.1); Eosinophils # 0.1 10^3/uL (0.0-0.8); Eosinophils % 1.2 %; Hematocrit 32.9 % (36-47); Lymphocytes # 1.6 10^3/uL (0.8-4.8); Lymphocytes % 32.9 %; Mean Corpuscular HGB Conc 31.3 g/dL (30-55); Mean Corpuscular Hemoglobin 31.8 pg (27-33); Mean Corpuscular Volume 101.5 fl (85-98); Mean Platelet Volume 11.8 fL (7.4-10.4); Monocytes # 0.7 10^3/uL (0.2-0.9); Monocytes % 13.9 %; Neutrophils # 2.49 10^3/uL (1.8-7.7); Neutrophils % 50.8 %; Nucleated Red Blood Cells % 0 %; Platelet Count 257 10^3/cmm (157-399); Red Blood Count 3.24 10^6/uL (3.85-5.65); Red Cell Distribution Width 16.5 % (12.1-15.1)
[2023-01-19 05:52] LABS: Alanine Aminotransferase 11 U/L (0-33); Albumin Level 3.5 g/dL (3.5-5.2); Alkaline Phosphatase 66 U/L (35-105); Anion Gap 17.6 (5-19); Aspartate Amino Transferase 15 U/L (0-32); Blood Urea Nitrogen 13 mg/dL (8-23); Calcium 9.3 mg/dL (8.5-10.5); Carbon Dioxide 26 mmol/L (22-29); Chloride 105 mmol/L (98-107); Creatinine Clr Calc Pharmacy 45.4894; Globulin 2.2 g/dL (1.3-4.6); Glucose 91 mg/dL (65-115); Magnesium 2.2 mg/dL (1.7-2.3); Osmolality Calculated 300 mOsm/kg (285-295); Potassium 3.6 mmol/L (3.5-5.1); Sodium 145 mmol/L (136-145); Total Bilirubin 0.4 mg/dL (0.15-1.2); Total Protein 5.7 g/dL (6.6-8.7)
--- OUTSIDE RECORDS SUMMARY | 2023-01-19 07:36 | XMS_ITS | Patient Health Record ---
Author Name Unknown Organization [facility] Address [address] [place] [address] Care Team Providers Care Efficiency Expert Name Role Phone Madan Keating Primary Care Provider [phone] ALLERGIES Allergen (clinical drug ingredient) Drug/Non Drug Allergy documented on EMR Reaction Allergy Type Onset Date Status linaclotide Linzess Unknown Drug Allergy Activ e quinine Quinine Unknown Drug Allergy Active RESULTS Component Value Reference Range Notes Diagnostic Colonoscopy-[id number] Reviewed date:12/24/2022 03:22:48 PM Interpretation: Performing Lab: Notes/Report: EGD, Upper GI Diagnostic-[id number] 35 Reviewed date:12/24/2022 03:23:29 PM Interpretation: Performing Lab: Notes/Report: Schedule Confirmation Reviewed date:11/03/2022 01:35:17 PM Interpretation: Performing Lab: Notes/Report: CTA Pelvis w/ + w/o Contrast Schedule Confirmation Reviewed date:11/03/2022 01:35:21 PM Interpretation: Performing Lab: Notes/Report: CTA Pelvis w/ + w/o Contrast Bun Proc NC--NO CPT Reviewed date:11/03/2022 01:35:25 PM Interpretation: Performing Lab: Notes/Report: BUN 9 7-21 MG/DL Creat Proc NC--NO PCT Reviewed date:11/03/2022 01:35:31 PM Interpretation: Performing Lab: Notes/Report: Creat .60 .51-1.17 MG/DL U-khfzgr-y-benzoquinone imine (NAPQI) is a metabolite of acetaminophen, NAPQI concentrations of apparoximately 10 mg/L correlation to toxic levels of acetaminophen demonstrates a greater than or equil to 10% change in results. NAPQI concentrations greater than this may lead to falsely depressed results for patient samples. Use of this assay is not recommended for patients undergoing treatment with phenindione, due to the potential for falsely depressed results. Schedule Confirmation Reviewed date:11/03/2022 01:35:12 PM Interpretation: Performing Lab: Notes/Report: CT Angio Abd/Pelvis w/con, incl noncontr CT Angio Abd/Pelvis w/con, i ncl noncontrast images-[id number] Reviewed date:11/03/2022 01:35:37 PM Interpretation: Performing Lab: Notes/Report: [id number]=iSite CT Angio Abd/Pelvis w/con, i ncl noncontrast images-[id number] Reviewed date:11/03/2022 01:35:08 PM Interpretation: Performing Lab: Notes/Report: See Below For Report CT Angio Abd/Pelvis w/con, incl noncontr Echo Complete [id number] Reviewed date:01/12/2023 04:03:31 PM Interpretation: Performing Lab: Notes/Report: Cardiopulmonary Services Name: SHAILA WALSH Study Date: 01/10/2023 : 1945 Patient Location: CCU Age: 77 yrs Gender: Female Height: 60 in Reason For Study: eval lv fct in am Interpretation Summary The left ventricle is normal in size. Left Ventricular Function is estimated to be 40-45%. There are regional wall motion abnormalities as specified. The left atrium is mildly dilated. There is mild mitral regurgitation. There is mild tricuspid regurgitation. Right ventricular systolic pressure is normal. Left Ventricle The left ventricle is normal in size. Left Ventricular Function is estimated to be 40-45%. There are regional wall motion abnormalities as specified. There is mild septal hypokinesis. Right Ventricle The right ventricle is normal size. Atria The left atrium is mildly dilated. Right atrial size is normal. Great Vessels The aortic root is normal size. Mitral Valve There is mild mitral annular calcification. There is mild mitral regurgitation. Tricuspid Valve There is mild tricuspid regurgitation. Right ventricular systolic pressure is normal. MMode/2D Measurements & Calculations Ao root diam: 2.7 cm LVOT diam: 2.0 cm RA A4Cs_phl: 10.7 cm2 Ao root area: 5.8 cm2 LVOT area: 3.2 cm2 ACS: 1.5 cm LA dimension: 3.2 cm Doppler Measurements & Calculations MV E max josse: 69.7 cm/sec MV V2 max: 100.5 cm/sec MV A max josse: 106.0 cm/sec MV max P.0 mmHg MV dec slope: 204.2 cm/sec2 MV E/A: 0.66 MV V2 mean: 59.1 cm/secMV dec time: 0.34 sec Lat Peak E E/E Lateral E/e Med Peak E Ao V2 max: 110.1 cm/sec LV V1 max P.8 mmHg SV(LVOT): 68.4 ml Ao max P.9 mmHg LV V1 mean P.7 mmHg Ao V2 mean: 69.9 cm/sec LV V1 max: 97.7 cm/sec Ao mean P.3 mmHg LV V1 mean: 61.5 cm/sec Ao V2 VTI: 23.6 cm LV V1 VTI: 21.7 cm DHRUV(I,D): 2.9 cm2 DHRUV(V,D): 2.8 cm2 TV V2 max: 63.8 cm/sec PA V2 max: 90.8 cm/sec TR max josse: 221.2 cm/sec TV max P.6 mmHg PA max P.3 mmHg TR max P.6 mmHg RVSP(TR): 29.6 mmHg RAP systole: 10.0 mmHg AV VR_phl: 0.89 MV P1/2t-pr_phl: 100.0 msec E/E Ordering Physician: Tacos Lerner Referring Physician: Fitz Turpin Performed By: Belen Omer Echo Complete [id number] Reviewed date:01/12/2023 04:03:31 PM Interpretation: Performing Lab: Notes/Report: [id number]=iSite Troponin-I [id number] Reviewed date:01/12/2023 04:03:31 PM Interpretation: Performing Lab: Notes/Report: Troponin-I 3182 2-34 pg/mL called to ANNY Molina/fe 01/10/2023 10:06:22 NM Lexiscan Cardiolite-[id number] Reviewed date:01/13/2023 10:01:14 AM Interpretation: Performing Lab: Notes/Report: [email or web address]=[id number]=iSite NM Lexiscan Cardiolite-[id number] Reviewed date:01/13/2023 10:01:14 AM Interpretation: Performing Lab: Notes/Report: See Below For Report NM Lexiscan Cardiolite next a.m. REASON FOR REFERRAL Reason GASTRITIS Diagnosis 1 Gastritis without bl eeding, unspecified chronicity, unspecified gastritis type (K29.70) Referring Provider First Name Marcus Referring Provider Last Name Sánchez Referring Provider [facility] Referred Provider Madan Keating Referred Address [address] [place] [phone],[place] Referred Provider Specialty Internal Med icine Referral Priority Routine MEDICATIONS Medication SIG (Take, Route, Frequency, Duration) Notes Start Date End Date Status Amitiza 24 MCG 1 capsule with food and water Orally Twice a day for 30 day(s) 12/22/2022 01/21/2023 Active Zolpidem Tartrate 10 MG 1 tablet at bedt cristina as needed Orally Once a day Not-Taking amLODIPine Besylate 5 MG 1 tablet Orally Once a day for 30 days Active Temazepam 15 MG 1 capsule at bedtime as needed Orally Once a day Not-Taking Amitriptyline HCl 50 MG 1 tablet at bedt cristina Orally Once a day Not-Taking Ondansetron 4 MG 1 tablet on the tongue and allow to dissolve Orally Once a day Active ALPRAZolam 2 MG 1/4 tablet Orally once a day Not-Taking Gabapentin 400 MG 1 tablet Orally thre e times a day Active Lisinopril 5 MG 1 tablet Orally Once a day Active Movantik 25 MG 1 tablet in the morning Orally Once a day for 30 days 12/24/2022 04/22/2023 Active Zoloft 100 MG 1 tablet Orally Once a day Active MiraLax 17 GM/SCOOP 1 scoop mixed with 8 ounces of fluid Orally Once a day for 30 days Active HYDROcodone-Acetaminophen 10-325 MG 1 tablet as needed Orally every 6 hrs Active Morphine Sulfate ER 20 MG 1 capsule Oral ly Once a day Active Furosemide 20 MG 1 tablet Orally Once a day Active Sertraline HCl 100 MG 1 tablet Orally On ce a day Active SOCIAL HISTORY Tobacco Use: Social History Observation Description Date Details (start date - stop date) Current Smoker NA - NA Sex Assigned At : Social History Observation Description Sex Assigned At Unknown Tobacco Use/Smoking Question Answer Notes Are you a current smoker How often do you smoke cigarettes? every day How many cigarettes a day do you smoke? 31 or mo re How soon after you wake up do you smoke your fir st cigarette? within 5 minutes Are you interested in quitting? Not ready to arash t Alcohol Screen (Audit-C) Question Answer Notes Did you have a drink containing alcohol in the p ast year? No Points 0 Interpretation Negative PROBLEMS Problem Type ICD Code Onset Dates Problem Status W/U Status Risk SNOMED Code Notes Problem Non-ST elevation (NSTEMI) myocardial infarction (I21.4) Active confirmed Acute non -ST segment elevation myocardial infarction (379938461) Problem Adverse effect of other opioids, initial encounter (T40.2X5A) Active confirmed 096829964 Problem Drug induced constipation (K59.03) Active confirmed 606745231135453 Problem Altered mental status (R41.82) Active confirmed Altered ment al status (978693813) Problem HTN (hypertension) (I10) Active confirmed Hypertension (63769748) Problem Expressive aphasia (R47.01) Active confirmed Expressive aphasia (912870547) Problem Acute cerebrovascular accident (CVA) (I63.9) Active confirmed Cerebral infarction (434420486) Problem Generalized postprandial abdominal pain (R10.84) Active confirmed 298443315 Problem Gastritis without bleeding, unspecified chronicity, unspecified gastritis type (K29.70) Active confirmed 8049597 VITAL SIGNS Heart Rate 72 /min 12/22/2022 Temperature 97.2 degrees Fahrenheit 12/22/2022 Height-cm 152.4 cm 12/22/2022 Oximetry 98 % 12/22/2022 Blood pressure diastolic 40 mm Hg 12/22/2022 Weight-kg 55.97 kg 12/22/2022 Height 60 in 12/22/2022 Blood pressure systolic 119 mm Hg 12/22/2022 Weight 123.4 lbs 12/22/2022 BMI 24.1 kg/m2 12/22/2022 Encounters Encounter Location Date Provider Diagnosis [facility] [address] [place] [phone] 12/24/2022 Madan Keating [facility] [address] [place] [phone] 10/23/2022 Madan Keating Drug induced constipation K59.03 and Generalized postprandial abdominal pain R10.84 [facility] [address] [place] [phone] 11/21/2022 Madan Keating Drug induced constipation K59.03 and Generalized postprandial abdominal pain R10.84 [facility] [address] [place] [phone] 12/22/2022 Madan Keating Drug induced constipation K59.03 and Adverse effect of other opioids, initial encounter T40.2X5A [facility] [address] [place] [address] 09/30/2022 Madan Keating Generalized postprandial abdominal pain R10.84 ; Drug induced constipation K59.03 and Adverse effect of other opioids, initial encounter T40.2X5A ASSESSMENTS Encounter Date Diagnosis Assessment Notes Treatment Notes Treatment Clinical Notes 09/30/2022 Drug induced constipation (ICD-10 - K59.03) She has a distinct aversion to liquid meds. 09/30/2022 Generalized postprandial abdominal pain (ICD-10 - R10.84) -x-- to be completed at [facility] ---to be completed at [facility] ---to be completed at [facility] ---to be completed at [facility] 11/21/2022 Drug induced constipation (ICD-10 - K59.03) 11/21/2022 Generalized postprandial abdominal pain (ICD-10 - R10.84) 12/22/2022 Adverse effect of other opioids, initial encounter (ICD-10 - T40.2X5A) 12/22/2022 Drug induced constipation (ICD-10 - K59.03) 10/23/2022 Drug induced constipation (ICD-10 - K59.03) 10/23/2022 Generalized postprandial abdominal pain (ICD-10 - R10.84) 09/30/2022 Adverse effect of other opioids, initial encounter (ICD-10 - T40.2X5A) PLAN OF TREATMENT No Information Insurance Providers Payer Name Payer Address Payer Phone Subscriber Number Group Number Insured Name Patient Relationship to Insured Coverage Start Date Coverage End Date [place] [address] [place] [phone] [id number] SHAILA WALSH Self - patient is the insured [facility] [employer] [address] [place] [address] [id number] SHAILA WALSH Self - patient is the insured MEDICAL (GENERAL) HISTORY Medical History History ICD Code Gastritis without bleeding, unspecified chronicity, unspecified gastritis type K29.70 anxiety back pain hypertension Surgical History Surgery Date(Month/Year) hernia repair hysterectomy breast implants/and removal tummy tuck neck surgery back surgery 19 of small intestine removed knee surgery intestinal obstruction Hospitalization History Reason Date(Month/Year) staph infection
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
[2023-01-19] MEDS: sertraline 100 mg Tablet PO (08:01)
[2023-01-19] MEDS: clopidogrel 75 mg Tablet PO (08:01)
[2023-01-19] MEDS: lisinopril 5 mg Tablet PO (08:01)
[2023-01-19 08:08] LABS: Free T4 Free Thyroxine 1.09 ng/dL (0.82-1.77); T3 Free 2.1 PG/ML (2.0-4.4)
[2023-01-19 08:13] LABS: Folate Level 13.8 ng/mL (4.8-37.3)
--- NOTE | 2023-01-19 08:57 | PC.PHAR ---
calling daughter for medication list 01/19/23. 8:57am
--- NOTE | 2023-01-19 09:11 | PM.PN ---
Documented by User: Alejandrina Hodgson 01/19/23 10:22 Subjective Subjective: Today, pt conversation is limited due potentially to some confusion. While speaking with her, she has difficulty recalling events leading to her hospitalization and difficulty describing any symptoms she may be experiencing. She does endorse pain and at one point requested her pain medication. Pt's daughter is supposed to be visiting her today, which the pt seemed relieved about. ROS significant for headache but otherwise unremarkable and difficult to assess due to pt cooperation. Vitals/I&O/Wt Last Vital Signs Temp 97.2 F L 01/19/23 04:00 Pulse 97 01/19/23 08:00 Resp 18 01/19/23 08:01 BP 194/83 01/19/23 08:00 Pulse Ox 97 01/19/23 04:00 O2 Del Method Room Air 01/18/23 20:53 01/18/23 01/19/23 01/19/23 22:59 06:59 14:59 Intake Total 240 / 240 240 / 480 Balance 240 / 240 240 / 480 Weight last 48 hrs Weight 52.163 kg Physical Exam Narrative: General: Pt appears confused, participates minimally in conversation. She will perform certain aspects of physical exam and refuse others. Neck: supple, no thyromegaly. Cardiac: normal rate, rhythm. No murmurs appreciated. Respiratory: clear to auscultation bilaterally. Abdomen: normoactive bowel sounds in all 4 quadrants. No obvious organomegaly. No abdominal tenderness. Extremities: no edema, bruising, or cyanosis. Neuro: no focal deficits appreciated. 5/5 strength bilaterally in lower extremities. Upper extremity strength difficult to assess due to pt refusal, but does not seem to have deficit throughout encounter. Data 01/19/23 04:34 01/19/23 04:34 Other Labs: Macrocytic anemia Protein 5.7 TSH 0.26, normal free T4 and T3 Magnesium normal Folate normal Vitamin B12 normal CXR by my read shows no acute findings. EKG by my read shows sinus rhythm, normal axis and intervals, with possible non specific T wave changes. A&P Assessment and plan (1) Acute encephalopathy: Reduced several medication dosages on med list as potential cause for pt's acute encephalopathy. Continue to monitor BP and treat accordingly as possible cause of acute encephalopathy. MRI imaging might be performed pending neurostimulator inactivation to assess for potential causes of encephalopathy. Electrolytes normal. BMP daily. (2) Macrocytic anemia: Folate results normal. Vitamin B12 normal. Pt has had macrocytosis chronically. Continue to monitor for future need for transfusion. CBC daily. (3) Weakness: Pt presented due to possible stroke-like symptoms. CT scan of head unremarkable. Pt has neurostimulator placed. Awaiting investigation into temporarily deactivating device so MRI can be obtained to assess for signs of stroke on imaging. (4) Chronic pain: Treat pt with home meds for pain as needed. (5) Depression with anxiety: Continue pt sertraline at lower dose to assess for possible depression/anxiety contributing to acute encephalopathy. Coding Level of Care Code 98067 Diagnoses Acute encephalopathy G93.40 Macrocytic anemia D53.9 Weakness R53.1 Chronic pain G89.29 Depression with anxiety F41.8 Time Spent (min) 34 Documented by User: Mehran Oden MD 01/19/23 10:29 Subjective Subjective: Today, pt conversation is limited due potentially to some confusion. While speaking with her, she has difficulty recalling events leading to her hospitalization and difficulty describing any symptoms she may be experiencing. She does endorse pain and at one point requested her pain medication. Pt's daughter is supposed to be visiting her today, which the pt seemed relieved about. ROS significant for headache but otherwise unremarkable and difficult to assess due to pt cooperation. Patient seen in tandem with medical student and I addended this document as well. Medications: Reviewed: Yes Physical Exam Narrative: General: Pt appears alert, participates minimally in conversation. She will perform certain aspects of physical exam and refuse others. Neck: supple, no thyromegaly. Cardiac: normal rate, rhythm. No murmurs appreciated. Respiratory: clear to auscultation bilaterally. Abdomen: normoactive bowel sounds in all 4 quadrants. No obvious organomegaly. No abdominal tenderness. Extremities: no edema, bruising, or cyanosis. Neuro: no focal deficits appreciated. 5/5 strength bilaterally in lower extremities. Upper extremity strength difficult to assess due to pt refusal, but does not seem to have deficit throughout encounter. Data 01/19/23 04:34 01/19/23 04:34 A&P Assessment and plan (1) Acute encephalopathy: Reduced several medication dosages on med list as potential cause for pt's acute encephalopathy. Continue to monitor BP and treat accordingly as possible cause of acute encephalopathy. MRI imaging will be performed pending neurostimulator inactivation to assess for potential causes of encephalopathy. Electrolytes normal. BMP daily. I think it is likely that medications may be contributing to this patient's confusion. Will review records from outside medical source, [facility] who recently saw the patient. We will also obtain an MRI. We will consider withdrawal as well. Reinstitute many of her home medications but at lower dose. Discussed with patient and her daughter. Check ammonia level AM. May also consider psych referral. (2) Macrocytic anemia: (3) Weakness: (4) Chronic pain: (5) Depression with anxiety: Plan Nausea. Patient's daughter reports she has significant nausea. We will see if medication reduction helps. Continue Protonix. May do further testing depending upon work-up done at [facility]. Start Docusate/Senna. Other medical probelms as listed in [facility] Lovenox for DVT proph Attestations Medical Necessity Statement*: Needs continued hospitalization for treatment of acute encephalopathy with medication adjustment. Diagnoses Acute encephalopathy G93.40 Macrocytic anemia D53.9 Weakness R53.1 Chronic pain G89.29 Depression with anxiety F41.8 Time Spent (min) 34
[2023-01-19 09:16] LABS: Vitamin B12 346 pg/mL (232-1245)
--- NOTE | 2023-01-19 09:56 | PC.PHAR ---
WENT OVER LONG MED LIST WITH DAUGHTER DUE TO PT JUST GETTING OUT OF FACILITY AND HAD SEVERAL DUPLICATE ORDERS WITH DOSAGE CHANGE. USED MOST RECENT MED LIST AND ADDED NEW MEDICATIONS, ADJUSTED DOSE CHANGES, AND DISCONTINUED MEDS NOT CURRENTLY TAKING. 01/19/23
[2023-01-19] MEDS: ondansetron 4 MG Tablet PO (10:08)
[2023-01-19] MEDS: amlodipine 10 mg Tablet PO (10:43)
[2023-01-19] MEDS: lisinopril 20 mg Tablet 40 MG PO (10:43)
[2023-01-19] MEDS: sennosides-docusate Tablet 2 TAB PO ×2 (10:43→17:29)
[2023-01-19] MEDS: morphine ER (12 HR) 15 mg Tablet PO ×2 (10:43→17:29)
[2023-01-19] MEDS: pantoprazole DR 40 mg Tablet PO ×2 (10:44→17:29)
[2023-01-19] MEDS: enoxaparin 40 mg/0.4 mL Syringe SUBCUT (10:44)
--- NOTE | 2023-01-19 11:57 | PC.NURSE ---
Patient allowed nurse tech to attempt IV, nurse tech was unsuccessful with obtaining IV access, patient refused to allow nursing staff to perform further attempts for obtaining IV access. This nurse educated patient of need for IV access in the case of an emergent situation, patient continued to refuse. notified.
[2023-01-19] MEDS: ALPRAZolam 0.5 mg Tablet 0.25 MG PO ×2 (12:57→20:16)
[2023-01-19] MEDS: HYDROcodone-acetaminophen 10-325 mg Tablet 1 TAB PO (13:59)
[2023-01-19] MEDS: gabapentin 100 mg Capsule PO ×2 (14:55→20:16)
[2023-01-19] MEDS: atorvastatin 40 mg Tablet 20 MG PO (20:16)
[2023-01-19] MEDS: amitriptyline 25 mg Tablet 12.5 MG PO (20:16)
[2023-01-20] MEDS: HYDROcodone-acetaminophen 10-325 mg Tablet 1 TAB PO ×3 (00:29→11:57)
[2023-01-20 04:00] VITALS: BP 152/72; PULSE 60; RESP 18; TEMP 36.3; O2SAT 94
[2023-01-20] MEDS: ALPRAZolam 0.5 mg Tablet 0.25 MG PO (05:53)
[2023-01-20 05:54] LABS: Basophils # 0.1 10^3/uL (0.0-0.1); Basophils % 1.3 %; Eosinophils # 0.1 10^3/uL (0.0-0.8); Eosinophils % 2.3 %; Hematocrit 33.7 % (36-47); Lymphocytes # 2.5 10^3/uL (0.8-4.8); Lymphocytes % 46.9 %; Mean Corpuscular HGB Conc 31.2 g/dL (30-55); Mean Corpuscular Hemoglobin 32.1 pg (27-33); Mean Corpuscular Volume 103.1 fl (85-98); Monocytes # 0.7 10^3/uL (0.2-0.9); Monocytes % 12.8 %; Neutrophils # 1.91 10^3/uL (1.8-7.7); Neutrophils % 36.5 %; Nucleated Red Blood Cells % 0 %; Platelet Count 256 10^3/cmm (157-399); Red Blood Count 3.27 10^6/uL (3.85-5.65); Red Cell Distribution Width 15.9 % (12.1-15.1); White Blood Count 5.24 10^3/uL (3.29-11.43)
[2023-01-20 06:14] LABS: Ammonia 22 umol/L (11-51)
[2023-01-20 06:20] LABS: Anion Gap 14.2 (5-19); Blood Urea Nitrogen 13 mg/dL (8-23); Calcium 9.3 mg/dL (8.5-10.5); Carbon Dioxide 27 mmol/L (22-29); Chloride 105 mmol/L (98-107); Creatinine Clr Calc Pharmacy 45.4894; Glucose 96 mg/dL (65-115); Osmolality Calculated 296 mOsm/kg (285-295); Potassium 3.2 mmol/L (3.5-5.1); Sodium 143 mmol/L (136-145)
[2023-01-20 07:32] VITALS: BP 167/76; PULSE 70; RESP 17; TEMP 36.8; O2SAT 98
[2023-01-20] MEDS: sertraline 50 mg Tablet PO (08:13)
[2023-01-20] MEDS: lisinopril 20 mg Tablet 40 MG PO (08:13)
[2023-01-20] MEDS: gabapentin 100 mg Capsule PO (08:13)
[2023-01-20] MEDS: pantoprazole DR 40 mg Tablet PO (08:13)
[2023-01-20] MEDS: clopidogrel 75 mg Tablet PO (08:13)
[2023-01-20] MEDS: potassium chloride ER 20 mEq Tablet 40 MEQ PO ×2 (08:13→11:57)
[2023-01-20] MEDS: morphine ER (12 HR) 15 mg Tablet PO (08:13)
[2023-01-20] MEDS: amlodipine 10 mg Tablet PO (08:13)
[2023-01-20] MEDS: sennosides-docusate Tablet 2 TAB PO (08:13)
[2023-01-20] MEDS: enoxaparin 40 mg/0.4 mL Syringe SUBCUT (10:10)
--- NOTE | 2023-01-20 12:32 | P.DS_ITS ---
Discharge Providers Date of Admission: 01/18/23 22:23 Date of Discharge: January 20, 2023 Attending Provider at Admission: Keyla Jaramillo MD Attending Provider at Discharge: Mehran Oden MD Primary Care Provider: Marcus Pozo MD Diagnoses at Discharge Discharge Diagnosis (1) Acute encephalopathy: Status: Acute (2) Macrocytic anemia: Status: Acute (3) Weakness: Status: Acute (4) Chronic pain: Status: Acute (5) Depression with anxiety: Status: Acute Reason for Visit Reason for Visit: n/v, confused, stroke 1 week ago Hospital Course Hospital Course Kathryn is a 77-year-old white female who presents from home with confusion and acute encephalopathy. She had recently been hospitalized at [place] [place] for the same and underwent echocardiogram, carotid duplex, CTA head and neck and CT head with concerns this may have been a stroke. She was placed on Plavix and statin. On arrival here she had some bizarre behavior, but no focal weakness. There was concern this might be secondary to medication effect. Many of her medication dosages were reduced. The following day her mental status was back to normal. She did not have any nausea or epigastric pain, or vomiting which she frequently has in the morning. She had underwent an EGD and colonoscopy for this which apparently showed some gastritis at an outside hospital. She also complained of some neck pain with radiation down the left arm. We discussed that this may represent nerve impingement in the C5-C6 level and she will visit with her pain hospice clinical marketer regarding this. I discussed the importance of reducing her medications with her, and her daughter. There is still a question regarding past history of CVA and I have not ordered an MRI of head without contrast. Her primary care provider can follow-up on this as an outpatient. An MRI was not able to be obtained during this hospital stay secondary to the inability to fully charge her neurostimulator. Family and the patient were given opportunity ask questions, and agreed with the plan. Physical Exam Narrative: General exam no distress Neck is supple Cardiovascular regular rate and rhythm Lungs clear Abdomen is soft Extremities no cyanosis clubbing or edema Discharge Data Studies Completed and Pending Completed Studies During Hospitalization Category Date Time Status CT head thrombolytic [id number] Stat Cat Scan 01/18/23 Completed XR chest 1V portable [id number] Stat Exams 01/18/23 17:12 Completed Pending at discharge Category Date Time Status MR head wo con* [id number] Routine MRI 01/20/23 09:30 Ordered Radiology Impressions Head CT 01/18/23 00:00 IMPRESSION: No acute intracranial finding. ASSESSMENT: ASPECTS (Jacqueline Stroke Program Early CT Score) is 10. Chest X-Ray 01/18/23 17:12 IMPRESSION: New neurostimulator electrodes noted. No acute infiltrate. Laboratory Results WBC 5.24 10^3/uL (3.29-11.43) 01/20/23 05:45 RBC 3.27 10^6/uL (3.85-5.65) L 01/20/23 05:45 Hgb 10.50 g/dL (11.27-16.99) L 01/20/23 05:45 Hct 33.7 % (36-47) L 01/20/23 05:45 MCV 103.1 fl (85-98) H 01/20/23 05:45 MCH 32.1 pg (27-33) 01/20/23 05:45 MCHC 31.2 g/dL (30-55) 01/20/23 05:45 RDW 15.9 % (12.1-15.1) H 01/20/23 05:45 Plt Count 256 10^3/cmm (157-399) 01/20/23 05:45 MPV 11.0 fL (7.4-10.4) H 01/20/23 05:45 Neut % (Auto) 36.5 % 01/20/23 05:45 Lymph % (Auto) 46.9 % 01/20/23 05:45 Cavalier % (Auto) 12.8 % 01/20/23 05:45 Eos % (Auto) 2.3 % 01/20/23 05:45 Baso % (Auto) 1.3 % 01/20/23 05:45 Neut # (Auto) 1.91 10^3/uL (1.8-7.7) 01/20/23 05:45 Lymph # (Auto) 2.5 10^3/uL (0.8-4.8) 01/20/23 05:45 Cavalier # (Auto) 0.7 10^3/uL (0.2-0.9) 01/20/23 05:45 Eos # (Auto) 0.1 10^3/uL (0.0-0.8) 01/20/23 05:45 Baso # (Auto) 0.1 10^3/uL (0.0-0.1) 01/20/23 05:45 Nucleated RBC % (auto) 0 % 01/20/23 05:45 Nucleated RBCs # 0.0 /100WBC 01/20/23 05:45 PT 12.10 SECONDS (12.1-14.9) 01/18/23 17:26 INR 0.87 (0.8-1.2) 01/18/23 17:26 Sodium 143 mmol/L (136-145) 01/20/23 05:45 Potassium 3.2 mmol/L (3.5-5.1) L 01/20/23 05:45 Chloride 105 mmol/L (98-107) 01/20/23 05:45 Carbon Dioxide 27 mmol/L (22-29) 01/20/23 05:45 Anion Gap 14.2 (5-19) 01/20/23 05:45 BUN 13 mg/dL (8-23) 01/20/23 05:45 Creatinine 0.6 mg/dL (0.5-0.9) 01/20/23 05:45 GFR Calculation Not Reportable 01/20/23 05:45 Glucose 96 mg/dL (65-115) 01/20/23 05:45 POC Glucose 98 mg/dL (70-110) 01/18/23 17:29 Calculated Osmolality 296 mOsm/kg (285-295) H 01/20/23 05:45 Calcium 9.3 mg/dL (8.5-10.5) 01/20/23 05:45 Magnesium 2.2 mg/dL (1.7-2.3) 01/19/23 04:34 Total Bilirubin 0.4 mg/dL (0.15-1.2) 01/19/23 04:34 AST 15 U/L (0-32) 01/19/23 04:34 ALT 11 U/L (0-33) 01/19/23 04:34 Alkaline Phosphatase 66 U/L (35-105) 01/19/23 04:34 Ammonia 22 umol/L (11-51) 01/20/23 05:45 C-Reactive Protein 3.0 mg/L (0.0-4.9) 01/18/23 18:15 Total Protein 5.7 g/dL (6.6-8.7) L 01/19/23 04:34 Albumin 3.5 g/dL (3.5-5.2) 01/19/23 04:34 Globulin 2.2 g/dL (1.3-4.6) 01/19/23 04:34 Vitamin B12 346 pg/mL (232-1245) 01/19/23 04:34 Folate 13.8 ng/mL (4.8-37.3) 01/19/23 04:34 TSH 0.26 uIU/mL (0.27-4.20) L 01/18/23 18:15 Free T4 1.09 ng/dL (0.82-1.77) 01/19/23 04:34 Free T3 2.1 PG/ML (2.0-4.4) 01/19/23 04:34 Urine Color Yellow (Yellow) 01/18/23 17:58 Urine Appearance Cloudy (CLEAR) A 01/18/23 17:58 Urine pH 8 (5-7) H 01/18/23 17:58 Ur Specific Gormania 1.010 (1.005-1.030) 01/18/23 17:58 Urine Protein Neg (Negative) 01/18/23 17:58 Urine Glucose (UA) Norm (Normal) 01/18/23 17:58 Urine Ketones 1+ (Negative) H 01/18/23 17:58 Urine Blood Neg (Negative) 01/18/23 17:58 Urine Nitrate Negative (Negative) 01/18/23 17:58 Urine Bilirubin Neg (Negative) 01/18/23 17:58 Prot Sulfosalicylic Acd Negative (Negative) 01/18/23 17:58 Urine Urobilinogen Neg mg/dL (Negative) 01/18/23 17:58 Ur Leukocyte Esterase Negative (Negative) 01/18/23 17:58 Urine Opiates Screen Positive ng/mL (Negative) H 01/18/23 17:58 Ur Barbiturates Screen Negative ng/mL (Negative) 01/18/23 17:58 Ur Phencyclidine Scrn Negative ng/mL (Negative) 01/18/23 17:58 Ur Amphetamines Screen Negative ng/mL (Negative) 01/18/23 17:58 U Benzodiazepines Scrn Positive ng/mL (Negative) H 01/18/23 17:58 Urine Cocaine Screen Negative ng/mL (Negative) 01/18/23 17:58 U Marijuana (THC) Screen Positive ng/mL (Negative) H 01/18/23 17:58 Vitals Last Vital Signs Temp 98.3 F 01/20/23 07:32 Pulse 70 01/20/23 07:32 Resp 17 01/20/23 07:32 BP 167/76 01/20/23 07:32 Pulse Ox 98 01/20/23 07:32 O2 Del Method Room Air 01/18/23 20:53 Discharge Plan Discharge Patient Disposition: Home Condition: Stable Prescriptions: New amitriptyline 25 mg Tablet 12.5 mg PO BEDTIME Qty: 15 0RF sertraline 50 mg Tablet 50 mg PO DAILY Qty: 30 0RF gabapentin 100 mg Capsule 100 mg PO TID Qty: 90 0RF sennosides-docusate sodium [Stool Softener-Laxative] 8.6-50 mg Tablet 2 tab PO BID Qty: 120 0RF baclofen 10 mg Tablet 10 mg PO QID PRN (Reason: Muscle Spasms) Qty: 30 0RF Continued hydrocodone-acetaminophen 10-325 mg tablet 1 tab PO Q6H PRN (Reason: Pain) alprazolam 2 mg tablet 0.5 mg PO QID PRN (Reason: Anxiety) acyclovir 800 mg tablet 800 mg PO DAILY PRN (Reason: SHINGLES) cholecalciferol (vitamin D3) 25 mcg (1,000 unit) tablet 200 mcg PO DAILY Rx Instructions: (8,000 UNITS DAILY) pantoprazole [Protonix] 40 mg tablet,delayed release (DR/EC) 40 mg PO BID Qty: 60 0RF amlodipine 10 mg tablet 10 mg PO DAILY nitroglycerin 0.4 mg tablet, sublingual See Rx Instructions .ROUTE .COMPLEX Rx Instructions: DISSOLVE 1 TABLET UNDER THE TONGUE EVERY 5 MINUTES NEEDED FOR CHEST PAIN. DO NOT EXCEED A TOTAL OF 3 DOSES IN 15 MINUTES morphine 15 mg tablet extended release 15 mg PO BID furosemide 20 mg tablet 20 mg PO DAILY lisinopril 40 mg tablet 40 mg PO QAM ondansetron 4 mg tablet,disintegrating 4 mg PO BID PRN (Reason: Nausea) atorvastatin 20 mg tablet 20 mg PO QAM clopidogrel 75 mg tablet 75 mg PO DAILY Discontinued sertraline [Zoloft] 100 mg tablet 100 mg PO DAILY temazepam 15 mg capsule 15 mg PO BEDTIME amitriptyline 50 mg tablet 50 mg PO QPM baclofen 20 mg tablet 20 mg PO DAILY PRN (Reason: Muscle Spasm) gabapentin 800 mg tablet 800 mg PO DAILY polyethylene glycol 3350 17 gram/dose powder See Rx Instructions .ROUTE .COMPLEX Rx Instructions: dissolve 1 SCOOP in 8 ounces of IN FLUID AND drink BY MOUTH ONCE a DAY Discharge Orders: Discharge Order (Routine); Ordered 01/20/23 Ordered By: Mehran Oden Other Ambulatory Orders: MR head wo con* [id number] (Routine) Timeframe: 1 Week Facility: [facility] - Location: Radiology [facility] Ordered By: Mehran Oden Referrals: Marcus Pozo MD [Primary Care Provider] - 4-7 days Discharge Diet: Usual diet Discharge Activity: Increase activity as tolerated Patient Instructions: Opioid Safety Activity Restrictions/Additional Instructions: Take all medicine as prescribed Return for any concerns An outpatient MRI will be arranged. Your primary care provider will follow up on this. Discharge Attestations Time Spent in Discharge Care*: greater than 30 min Quality Metrics Clinical Quality Measures [ No reported AMI, CVA or VTE this stay] Coding Level of Care Code 02003 Total time (in minutes) for Discharge: 38 Diagnoses Acute encephalopathy G93.40 Macrocytic anemia D53.9 Weakness R53.1 Chronic pain G89.29 Depression with anxiety F41.8
== END 2023-01-20 14:34 | disposition home or self-care (01) | DRG 93 ==
LOC: ER 19:37 → MEDSURG 20:31
PROVIDERS: Emergency Medicine; Admitting Provider Internal Medicine; Emergency Provider Emergency Medicine; PCP Family Medicine; Visit Provider Internal Medicine
DX: G92.8 Other toxic encephalopathy (principal); T50.915A Adverse effect of multiple unspecified drugs, medicaments and biological substances, initial encounter; K29.70 Gastritis, unspecified, without bleeding; M54.2 Cervicalgia; Z86.73 Personal history of transient ischemic attack (TIA), and cerebral infarction without residual deficits; Z96.82 Presence of neurostimulator; Z79.891 Long term (current) use of opiate analgesic; Z79.02 Long term (current) use of antithrombotics/antiplatelets; I10 Essential (primary) hypertension; F32.A Depression, unspecified; F41.9 Anxiety disorder, unspecified; G47.00 Insomnia, unspecified; G89.29 Other chronic pain; M19.90 Unspecified osteoarthritis, unspecified site; Z90.49 Acquired absence of other specified parts of digestive tract; Z96.653 Presence of artificial knee joint, bilateral; Z66 Do not resuscitate; D64.9 Anemia, unspecified
CPT/HCPCS: 36415; 36416; 70450; 71045; 80048; 80053; 80306; 81003; 82140; 82607; 82746; 82962; 83735; 84439; 84443; 84481; 85025; 85610; 86140; 93005; 96372; 96374; 97116; 97161; 99285; J1650; J2270; J2405; J7030; Q0162

== ENCOUNTER 2023-01-28 15:50 | Outpatient (CLI) | payer MEDICARE, BC, SELFPAY ==
--- NOTE | 2023-01-28 16:15 | MR_ITS ---
WS: [id number] MRI HEAD WITHOUT CONTRAST TECHNIQUE: Sagittal T1, T2 axial, T2 axial FLAIR, axial and coronal T1 images, axial susceptibility w eighted imaging, axial diffusion weighted images, and coronal T2 images were obtained. CLINICAL INFORMATION: stroke like symptoms COMPARISON: CT 01/18/2023 FINDINGS: No evidence of restricted diffusion to suggest acute ischemia. Ventricular system and basal cisterns are patent. Mild small vessel changes. Moderate parenchymal volume loss worse in the frontal lobes. S mall vessel changes in the adriana. Normal vascular flow voids at the skull base. No extra-axial fluid c ollections. No evidence of mass or mass effect. Paranasal sinuses and mastoid air cells are well aerated. No hemosiderin on susceptibly weighted imag es. Temporal lobes and hippocampal formations are normal in appearance. Normal optic chiasm and pitui tary infundibulum. Normal posterior nasopharynx and parapharyngeal fat. IMPRESSION: 1. No evidence of restricted diffusion to suggest acute ischemia. 2. Mild small vessel changes with moderate parenchymal volume loss worse in the frontal lobes. 3. Small vessel changes in the adriana. 4. No other acute findings.
== END 2023-01-28 15:51 | disposition home or self-care (01) ==
LOC: RAD 15:54
PROVIDERS: PCP Family Medicine; Visit Provider Internal Medicine
DX: R41.82 Altered mental status, unspecified (principal)
CPT/HCPCS: 70551

== ENCOUNTER → 2023-12-08 10:00 | Outpatient (BNVA) | payer MEDICARE, BC, OTHER, SELFPAY | PROVIDERS: PCP Family Medicine; Visit Provider Podiatrist Foot & Ankle Surgery | DX: L60.3 Nail dystrophy (principal); I73.9 Peripheral vascular disease, unspecified; G62.9 Polyneuropathy, unspecified | CPT/HCPCS: 11721; 99203 ==

== ENCOUNTER 2024-07-26 13:40 | Outpatient (CLI) | payer MEDICARE, BC, SELFPAY ==
--- NOTE | 2024-07-26 13:43 | CTR_ITS ---
PROCEDURE INFORMATION: Exam: CT Cervical Spine Without Contrast Exam date and time: 07/26/2024 2:16 PM Age: 78 years old Clinical indication: Pain; Prior surgery; Surgery date: 6+ months; Surgery type: Neck x 2; Neuropathy in hands x 1 month; Additional info: Other symptoms signs involving the musculoskeletal system, PT having mri too TECHNIQUE: Imaging protocol: Computed tomography of the cervical spine without contrast. Radiation optimization: All CT scans at this facility use at least one of these dose optimization techniques: automated exposure control; mA and/or kV adjustment per patient size (includes targeted exams where dose is matched to clinical indication); or iterative reconstruction. COMPARISON: MR head wo con* [id number] 01/28/2023 4:38 PM RADIATION DOSE METRICS: Total DLP (mGy-cm): 144.57 FINDINGS: Bones: There is reversal of the normal cervical lordosis likely secondary to chronic degenerative changes. Subtle grade 1 anterolisthesis of C4 over C5. There is chronic degenerative fusion of multiple midcervical facet joints. There is severe chronic degenerative disc disease at C6-C7 and C7-T1. There is a mature fusion at C5-C6. Lungs: Lung apices are normal. Vasculature: Densely calcified atherosclerotic plaques of the carotid bulbs on each side. Soft tissues: Unremarkable. CT/CT cervical spin wo con* [id number] IMPRESSION: 1. Significant multi level chronic degenerative changes throughout the cervical spine without fracture. 2. Densely calcified atherosclerotic plaques of the carotid bulbs on each side.
== END 2024-07-26 13:41 | disposition home or self-care (01) ==
LOC: RAD 13:41
PROVIDERS: PCP Family Medicine; Visit Provider Neurological Surgery
DX: R29.898 Other symptoms and signs involving the musculoskeletal system (principal); M47.892 Other spondylosis, cervical region; I65.23 Occlusion and stenosis of bilateral carotid arteries; R93.7 Abnormal findings on diagnostic imaging of other parts of musculoskeletal system; M50.323 Other cervical disc degeneration at C6-C7 level; M50.33 Other cervical disc degeneration, cervicothoracic region
CPT/HCPCS: 72125

== ENCOUNTER 2024-07-28 11:02 | Outpatient (CLI) | payer MEDICARE, BC, SELFPAY ==
--- NOTE | 2024-07-28 11:09 | MR_ITS ---
WS: [id number] MRI CERVICAL SPINE NONCONTRAST HISTORY: WEAKNESS OF BOTH HANDS/HX OF NON INSTRUMENTED FUSION COMPARISON: CT 07/26/2024, prior MRI 07/23/2012 Technique: Multiplanar, multisequence noncontrast imaging of the cervical spine. Curvature and scoliosis and straightening of the normal cervical lordosis. C4 anterolisthesis by 2.5 mm. Disc spaces are all severely narrowed and desiccated. Fusion across the C5-6 vertebral bodies. Signal within the cervical cord is normal. Visualized posterior fossa is unremarkable. Craniocervical junction, C1 and C2 relationship, odontoid process and soft tissues are normal. C2-C3: Normal. C3-C4: Disc osteophyte encroaching upon the ventral thecal sac with bilateral facet joint arthropathy. Moderate central with moderate to severe bilateral foraminal stenosis. There is significant encroachment upon the cervical cord greatest to the LEFT of midline. C4-C5: Osteophytic ridging. Hypertrophic osteophyte along the superior endplate of C5 encroaches upon the ventral canal. Loss of CSF. Mild central and bilateral foraminal stenosis and facet arthropathy. C5-C6: Fusion across the disc space. Moderate to severe central and bilateral foraminal stenosis. C6-C7: Severe degenerative changes at the disc along with erosions in the endplates. Annular disc bulging with osteophytosis and facet arthritis. Severe central and bilateral foraminal stenosis. C7-T1: Osteophytic ridging encroaching upon the ventral thecal sac. Axial imaging was not included at this level. There is moderate central and bilateral foraminal stenosis. Small amount of marrow edema in the LEFT facet of C4. Additional areas of increased STIR signal in the posterior paraspinal soft tissues from C7-T2. May be related to a small amount of edema within the paraspinal soft tissues. New since 2012. MR/MR cervical spin wo con* [id number] IMPRESSION: 1. Advanced degenerative changes throughout the cervical spine with multiple l evels of stenosis. 2. C3-4: Moderate central with moderate to severe bilateral foraminal stenosis . 3. C5-6: Moderate to severe central and bilateral foraminal stenosis. Complete fusion across the disc space at this level. 4. C6-7: Severe central and bilateral foraminal stenosis. 5. C7-T1: Moderate central and bilateral foraminal stenosis. 6. Advanced changes of scoliosis and degenerative disc disease. 7. There is edema within the paravertebral soft tissues from C7-T2. May be rel ated to acute synovitis or recent surgery or injury. No fluid collections or ma sses were identified on the recent CT of 07/26/2024.
== END 2024-07-28 11:03 | disposition home or self-care (01) ==
PROVIDERS: PCP Family Medicine; Visit Provider Neurological Surgery
DX: R29.898 Other symptoms and signs involving the musculoskeletal system (principal); M48.02 Spinal stenosis, cervical region; M48.03 Spinal stenosis, cervicothoracic region; M41.82 Other forms of scoliosis, cervical region; R93.7 Abnormal findings on diagnostic imaging of other parts of musculoskeletal system; M43.12 Spondylolisthesis, cervical region; M25.78 Osteophyte, vertebrae; M47.892 Other spondylosis, cervical region; M89.38 Hypertrophy of bone, other site; M50.323 Other cervical disc degeneration at C6-C7 level; M79.9 Soft tissue disorder, unspecified
CPT/HCPCS: 72141